=== PATIENT | female | born 1935 | race Caucasian/White ===

== ENCOUNTER 2017-04-19 16:27 | Inpatient (IN) | payer MEDICARE, OTHER ==
[2017-04-19 18:07] LABS: BILIRUBIN,URINE NEGATIVE (NEGATIVE); GLUCOSE, URINE (UA) NEGATIVE (NEGATIVE); KETONES,URINE (UA) NEGATIVE (NEGATIVE); LEUKOCYTE ESTERASE, URINE MODERATE (NEGATIVE); NITRITE,URINE NEGATIVE (NEGATIVE); OCCULT BLOOD,URINE NEGATIVE (NEGATIVE); PROTEIN,URINE TRACE mg/dL (NEGATIVE); UROBILINOGEN,URINE 2 E.U./dL (NORMAL)
[2017-04-19 18:08] LABS: CLARITY,URINE SL. CLOUDY (CLEAR)
[2017-04-19 18:13] LABS: BASOPHILS % (AUTO) 0.6 %; EOSINOPHILS # (AUTO) 0.7 10^3/uL (0.0-0.7); EOSINOPHILS % (AUTO) 9.6 %; HGB - HEMOGLOBIN 13.6 g/dL (12.0-16.0); LYMPHOCYTES # (AUTO) 1.3 10^3/uL (1.5-3.5); LYMPHOCYTES % (AUTO) 18.6 %; MEAN CORPUSCULAR HEMOGLOBIN 31.7 pg (27.0-31.0); MEAN CORPUSCULAR HGB CONC 32.7 g/dL (32.0-36.0); MEAN PLATELET VOLUME 7.6 fL (7.9-10.8); MONOCYTES # (AUTO) 0.9 10^3/uL (0.0-1.0); MONOCYTES % (AUTO) 12.7 %; NEUTROPHILS % (AUTO) 58.5 %; PLT - PLATELET COUNT 165 10^3/uL (130-450); RED BLOOD COUNT 4.28 10^6/uL (4.20-5.40); RED CELL DISTRIBUTION WIDTH 13.9 % (12.0-15.0); WHITE BLOOD COUNT 6.9 x10^3/uL (4.8-10.8)
[2017-04-19 18:19] LABS: BACTERIA,URINE Few /HPF (None Seen); RBC,URINE 0-5 /HPF (0-5); SQUAMOUS EPITHELIAL CELL,UR MANY Squamous (<= Few)
[2017-04-19 18:26] LABS: ALBUMIN 3.2 g/dL (3.2-5.5); ALBUMIN/GLOBULIN RATIO 0.8 (1.0-2.2); BILIRUBIN,TOTAL 1.2 mg/dL (0.2-1.0)
[2017-04-19] MEDS ORDERED: cefTRIAXone 1 GM VIAL IVP STA (18:49)
[2017-04-19] MEDS ORDERED: SODIUM CHLORIDE 0.9% 1,000 ML IV ONE (18:49)
--- NOTE | 2017-04-19 20:30 | XRAY Preliminary Report ---
Exam: XR CHEST 1 VIEW X-RAY IMPRESSION: Resolving infiltrate on the right, other chronic findings as noted. Continued follow-up i s recommended. [facility] SITE ID: [id number]
--- NOTE | 2017-04-19 20:31 | XRAY Report ---
EXAM: CHEST RADIOGRAPHY EXAM DATE: 04/19/2017 08:19 PM. CLINICAL HISTORY: Cough, recent pneumonia. COMPARISON: 04/07/2017. TECHNIQUE: 1 view. FINDINGS: Lungs/Pleura: Local infiltrate in right midlung zone on previous study has largely resolved. No moss e of density in left costophrenic angle, possibly related to fat pad and other soft tissues. No new i nfiltrate or consolidation. No effusion or pneumothorax. Mediastinum: Within exam limitations, the cardiomediastinal contour is normal. Other: Degenerative changes. IMPRESSION: Resolving infiltrate on the right, other chronic findings as noted. Continued follow-up i s recommended. [facility] Referring Provider Line: [phone] SITE ID: [id number]
--- NOTE | 2017-04-19 20:34 | ED Physician Documentation ---
History of Present Illness - Stated complaint Stated Complaint: CONFUSION - Chief complaint Chief Complaint: General - History obtained from History obtained from: Patient, Family - History of Present Illness Timing: Today Pain level max: 0 Pain level now: 0 Improved by: nothing Worsened by: nothing - Additonal information Additional information: Patient is an 82-year-old female who lives at home with her . She lives in [place]. She was admitted to [facility] in [place] recently for pneumonia, UTI, sepsis, influenza and an L1 compression fracture. She stopped her antibiotics 2-3 days ago and since that time his become increasingly weak and confused. She has been shaking at home. Unclear she has had fevers or not. Review of Systems Ten Systems: 10 systems reviewed and negative Constitutional: denies: Chills Ears: denies: Ear pain Nose: denies: Rhinorrhea / runny nose, Congestion Throat: denies: Sore throat Cardiac: denies: Chest pain / pressure Respiratory: denies: Dyspnea, Cough, Wheezing GI: reports: Abdominal Pain (intermittent). denies: Nausea, Vomiting, Diarrhea : denies: Dysuria Skin: denies: Rash Musculoskeletal: reports: Back pain (L1 compression fracture). denies: Neck pain Neurologic: denies: Headache PD PAST MEDICAL HISTORY - Past Medical History Past Medical History: Yes Cardiovascular: Hypertension, High cholesterol Psych: Anxiety Musculoskeletal: Chronic back pain - Past Surgical History Past Surgical History: Yes General: Cholecystectomy - Present Medications Home Medications: Ambulatory Orders Medication Instructions Recorded Confirmed ALPRAZolam [Alprazolam] 1 tab PO BID PRN 04/19/17 04/19/17 Aspirin 325 mg PO DAILY 04/19/17 04/19/17 Atenolol [Atenolol] 50 mg PO DAILY 04/19/17 04/19/17 Atorvastatin Calcium [Atorvastatin 1 tab PO DAILY 04/19/17 04/19/17 Calcium] Benzonatate 1 cap PO Q8HR PRN 04/19/17 04/19/17 Gabapentin 1 - 2 cap PO QID 04/19/17 04/19/17 Ibuprofen 200 mg PO QID PRN 04/19/17 04/19/17 Vit A/Vit C/Vit E/Zinc/Copper 1 tab PO BID 04/19/17 04/19/17 [Preservision Areds Softgel] hydroCHLOROthiazide 25 mg pe PO DAILY PM PRN 04/19/17 04/19/17 [Hydrochlorothiazide] traMADol [Ultram] 1 tab PO Q6HR PRN 04/19/17 04/19/17 - Allergies Allergies/Adverse Reactions: Allergies Allergy/AdvReac Type Severity Reaction Status Date / Time beclomethasone Allergy Mild Unknown Verified 04/19/17 21:20 adhesive tape AdvReac Intermediate Unknown Verified 04/19/17 21:23 codeine AdvReac Intermediate Nausea Verified 04/19/17 21:24 heparin AdvReac Intermediate Unknown Verified 04/19/17 21:18 hydrocodone AdvReac Intermediate Unknown Verified 04/19/17 21:21 oxycodone AdvReac Intermediate Unknown Verified 04/19/17 21:19 promethazine AdvReac Intermediate Unknown Verified 04/19/17 21:20 - Living Situation Living Situation: reports: With family Living Arrangement: reports: At home - Social History Does the pt smoke?: No Smoking Status: Never smoker Does the pt have substance abuse?: No - Family History Family history: reports: Non contributory PD ED PE NORMAL - Vitals Vital signs reviewed: Yes - General General: No acute distress, Well developed/nourished, Other (alert, oriented to person and place) - HEENT HEENT: PERRL, Ears normal, Moist mucous membranes, Pharynx benign - Neck Neck: Supple, no meningeal sign - Cardiac Cardiac: RRR, Strong equal pulses - Respiratory Respiratory: No respiratory distress, Clear bilaterally - Abdomen Abdomen: Soft, Non tender, Non distended - Back Back: No CVA TTP, Other (TTP at L1. no stepoff or deformity.) - Derm Derm: Warm and dry, No rash - Extremities Extremities: Other (mild edema B LE.) - Neuro Neuro: Other (alert) - Psych Psych: Normal mood, Normal affect Results - Vitals Vitals: Vital Signs - 24 hr 04/19/17 04/19/17 04/19/17 16:37 19:01 21:09 Temperature 35.7 C L 36.5 C 36 C L Heart Rate 61 64 63 Respiratory 16 14 14 Rate Blood Pressure 124/64 125/67 114/54 L O2 Saturation 96 94 96 04/19/17 04/19/17 23:02 23:34 Temperature 37.0 C Heart Rate 59 L 63 Respiratory 15 15 Rate Blood Pressure 120/41 L 107/44 L O2 Saturation 97 95 Oxygen O2 Source Room air - Labs Labs: Laboratory Tests 04/19/17 04/19/17 04/19/17 17:54 18:05 18:05 WBC 6.9 RBC 4.28 Hgb 13.6 Hct 41.5 MCV 97.0 MCH 31.7 H MCHC 32.7 RDW 13.9 Plt Count 165 MPV 7.6 L Neut # 4.0 Lymph # 1.3 L [place] # 0.9 Eos # 0.7 Baso # 0.0 Absolute Nucleated RBC 0.00 Nucleated RBC % 0.0 Sodium 136 Potassium 3.7 Chloride 96 L Carbon Dioxide 28 Anion Gap 12.0 BUN 17 Creatinine 1.0 Estimated GFR (MDRD) 53 L Glucose 158 H Lactic Acid Calcium 9.0 Total Bilirubin 1.2 H AST 224 H ALT 99 H Alkaline Phosphatase 322 H Total Protein 7.0 Albumin 3.2 Globulin 3.8 Albumin/Globulin Ratio 0.8 L Lipase 16 L Urine Color YELLOW Urine Clarity SL. CLOUDY Urine pH 7.0 Ur Specific [place] 1.020 Urine Protein TRACE Urine Glucose (UA) NEGATIVE Urine Ketones NEGATIVE Urine Occult Blood NEGATIVE Urine Nitrite NEGATIVE Urine Bilirubin NEGATIVE Urine Urobilinogen 2 H Ur Leukocyte Esterase MODERATE H Urine RBC 0-5 Urine WBC 11-25 H Ur Squamous Epith Cells MANY Squamous H Urine Bacteria Few Ur Microscopic Review INDICATED Urine Culture Comments NOT INDICATED Salicylates Acetaminophen Ethyl Alcohol 04/19/17 04/19/17 18:05 18:08 WBC RBC Hgb Hct MCV MCH MCHC RDW Plt Count MPV Neut # Lymph # [place] # Eos # Baso # Absolute Nucleated RBC Nucleated RBC % Sodium Potassium Chloride Carbon Dioxide Anion Gap BUN Creatinine Estimated GFR (MDRD) Glucose Lactic Acid 1.8 Calcium Total Bilirubin AST ALT Alkaline Phosphatase Total Protein Albumin Globulin Albumin/Globulin Ratio Lipase Urine Color Urine Clarity Urine pH Ur Specific [place] Urine Protein Urine Glucose (UA) Urine Ketones Urine Occult Blood Urine Nitrite Urine Bilirubin Urine Urobilinogen Ur Leukocyte Esterase Urine RBC Urine WBC Ur Squamous Epith Cells Urine Bacteria Ur Microscopic Review Urine Culture Comments Salicylates < 6.0 Acetaminophen < 10 L Ethyl Alcohol < 5.0 - Rads (name of study) cxr Radiology: Prelim report reviewed, EMP read contemporaneously, See rad report ( Resolving infiltrate on the right, other chronic findings as noted. Continued follow-up is recommended) RUQ US Radiology: Prelim report reviewed, EMP read contemporaneously, See rad report ( Cirrhotic appearing liver. Absent gallbladder with abnormal common bile duct diameter of 10 mm. Solid upper pole renal mass noted. ) Abd/pelvis CT Radiology: Prelim report reviewed, EMP read contemporaneously, See rad report ( Diverticulosis without diverticulitis or other acute bowel abnormality. Prominent common bile duct post-cholecystectomy. Posterior right upper renal cortical abnormality concerning for neoplasm. 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 Unchanged L1 fracture and L4-L5 anterolisthesis. ) PD MEDICAL DECISION MAKING - ED course Complexity details: reviewed old records ([facility] discharge summary), reviewed results, re-evaluated patient, considered differential, d/w patient, d/ w family, d/w residential property consultant ED course: Patient is an 82-year-old female who presents to the emergency department with altered mental status. Appears to have a recurrent UTI, given Rocephin for this. Also has elevated transaminases, unclear etiology, possibly from the Tamiflu that she was given for influenza? Bilirubin is not significantly elevated. No acute findings on CT abdomen pelvis other than a right renal mass that she will need outpatient follow-up for and the patient and her family were informed of this. No evidence of sepsis. Discussed the case with the hospitalist, Dr. Phelps who accepts. This document was made in part using voice recognition software. While efforts are made to proofread this document, sound alike and grammatical errors may occur. Departure - Departure Disposition: 66 [facility] DC/Xfer Clinical Impression: Transaminitis UTI (urinary tract infection) Qualifiers: Urinary tract infection type: acute cystitis Hematuria presence: without hematuria Qualified Code(s): N30.00 - Acute cystitis without hematuria Altered mental status Qualifiers: Altered mental status type: unspecified Qualified Code(s): R41.82 - Altered mental status, unspecified Condition: Stable
[2017-04-19] MEDS ORDERED: IOPAMIDOL-300 100 ML VIAL ONE (21:21)
--- NOTE | 2017-04-19 21:24 | Ultrasound Report ---
EXAM: ABDOMEN ULTRASOUND LIMITED, RUQ EXAM DATE: 04/19/2017 09:00 PM. CLINICAL HISTORY: Elevated LFTs. COMPARISON: None. TECHNIQUE: Real-time scanning was performed with static images obtained. FINDINGS: Liver: Normal in size. Hyperechoic heterogeneous echotexture with lobulated capsule. 16.6 cm. Main po rtal vein flow: Hepatopetal. Gallbladder: Surgically absent Biliary System: CBD measures 10 mm. Abnormally dilated. Other: The visualized pancreas is unremarkable. The right kidney measures 10.9, with a solid upper po le cortical mass 2.8 x 2.5 x 2.0 cm. IMPRESSION: 1. Cirrhotic appearing liver. 2. Absent gallbladder with abnormal common bile duct diameter of 10 mm. 3. Solid upper pole renal mass noted. [facility] Referring Provider Line: [phone] SITE ID: [id number]
[2017-04-19] MEDS ORDERED: IOPAMIDOL-300 100 ML VIAL IVP ONE (21:34)
[2017-04-19 22:10] LABS: SALICYLATE < 6.0 mg/dL
[2017-04-19 22:22] LABS: ACETAMINOPHEN < 10 ug/mL (10-30)
--- NOTE | 2017-04-19 22:22 | CT Report ---
EXAM: CT ABDOMEN AND PELVIS EXAM DATE: 04/19/2017 09:42 PM. CLINICAL HISTORY: Abdominal pain. Elevated LFTs. Right renal mass. COMPARISONS: None. TECHNIQUE: Routine helical CT imaging was performed through the abdomen and pelvis. IV contrast: 100M L ISOVUE 300. Enteric contrast: No. Reconstructions: Coronal and sagittal. In accordance with CT protocol optimization, one or more of the following dose reduction techniques w ere utilized for this exam: automated exposure control, adjustment of mA and/or KV based on patient s ize, or use of iterative reconstructive technique. FINDINGS: Lung Bases: Mitral valve calcification noted, otherwise unremarkable.. Liver: Normal. No masses. Gallbladder/Bile Ducts: Prominent common bile duct postcholecystectomy. Spleen: Normal. Pancreas: Normal. Adrenal Glands: Normal. Kidneys: Exophytic area of abnormal enhancement, posterior upper right kidney, 3.5 cm. Otherwise unre markable. Peritoneal Cavity/Bowel: Diverticulosis. No free fluid, free air or adenopathy. No masses or acute in flammatory process. The appendix is well visualized and normal. Pelvic Organs: Hysterectomy. Unremarkable bladder. Vasculature: No aortic aneurysm. Advanced atherosclerotic calcification. Left iliac artery stent. Rig ht common iliac artery occlusion, with patent femorofemoral graft. Bones: Two column L1 vertebral body fracture, and mild anterolisthesis at L4-L5, unchanged. Other: None. IMPRESSION: 1. Diverticulosis without diverticulitis or other acute bowel abnormality. 2. Prominent common bile duct post-cholecystectomy. 3. Posterior right upper renal cortical abnormality concerning for neoplasm. 4. 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 5. Unchanged L1 fracture and L4-L5 anterolisthesis. [facility] Referring Provider Line: [phone] SITE ID: [id number]
[2017-04-20] MEDS ORDERED: ONDANSETRON 4 MG/2 ML VIAL IVP PRN (00:12)
[2017-04-20] MEDS ORDERED: MORPHINE 2 MG/ML CARPUJECT IVP PRN (00:12)
[2017-04-20 00:20] LABS: BILIRUBIN,URINE NEGATIVE (NEGATIVE); GLUCOSE, URINE (UA) NEGATIVE (NEGATIVE); KETONES,URINE (UA) NEGATIVE (NEGATIVE); LEUKOCYTE ESTERASE, URINE NEGATIVE (NEGATIVE); NITRITE,URINE NEGATIVE (NEGATIVE); OCCULT BLOOD,URINE NEGATIVE (NEGATIVE); PROTEIN,URINE NEGATIVE (NEGATIVE); UROBILINOGEN,URINE 0.2 (NORMAL) E.U./dL (NORMAL)
[2017-04-20 00:30] LABS: CLARITY,URINE CLEAR (CLEAR)
[2017-04-20 00:49] LABS: INR 1.4 (0.8-1.2); PT - PROTHROMBIN TIME 15.4 secs (9.9-12.6)
[2017-04-20] MEDS ORDERED: NS W/20 MEQ KCL 1,000 ML IV SCH (01:00)
[2017-04-20 01:06] LABS: CREATINE KINASE MB 1.9 ng/mL (0.6-6.3)
[2017-04-20 01:08] LABS: TROPONIN I < 0.04 ng/mL (<0.49)
[2017-04-20] MEDS: ERTAPENEM 1 GM in SODIUM CHLORIDE 0.9% MINIBAG 100 ML IV SCH ×2 (03:02→21:23)
--- NOTE | 2017-04-20 04:55 | HISTORY & PHYSICAL EXAMINATION ---
DATE OF SERVICE: 04/19/2017 Physician: Crystal Phelps MD DATE OF ADMISSION: 04/19/2017 CHIEF COMPLAINT: Altered mental status. SOURCE OF HISTORY: History was obtained interviewing the patient's family, including and daughter, plus reviewing medical records from [facility], and getting a sign out from the ER physician. CODE STATUS: FULL CODE. PRIMARY CARE PHYSICIAN: Maxim Guaman HISTORY OF PRESENT ILLNESS: The patient is an 82-year-old, white female who was brought in to [facility] ER by her daughter and . The patient on admission was confused and could not meaningfully interact; therefore, the history was provided by the family. The daughter reported that this patient is usually active with no dementia or memory problems. She has never been confused in the past, except during the past few weeks, when she had been ill. The patient is computer literate, usually takes care of her grandkids, likes traveling and has a very active lifestyle, that is up to early March, at which time she developed generalized weakness and altered mental status, and was taken to [facility], where she was admitted between April 06 and April 09. Reviewing discharge summary from [place], she was found with influenza A. In addition, she was found with right middle lobe pneumonia urinary infection, and she also had an L1 compression fracture, which she suffered following a mechanical fall at her home. Besides all these acute problems, she was found with an incidental small right basal ganglia lacunar infarct on CT scan of the brain, and reportedly there was no acute symptom to this, and it was an incidental finding. During the 3-day hospital stay, the patient received IV antibiotics for pneumonia and urinary infection, which included Rocephin and vancomycin, and she also received Tamiflu for influenza. The daughter reports that after a couple of days on antibiotics, the patient's mental status cleared up, and she was almost back to her usual state of health. She was discharged on the third day, and was sent home to finish an antibiotic course of Omnicef and doxycycline. She also received a brace for the L1 compression fracture. The patient and her live in the [place] area, and the patient went home with her after she was discharged. She was doing reasonably well for about a couple of days; however, subsequently again she developed lethargy and weakness. The daughter who lives on [facility] visited the patient a few days ago on April 16, and found that the patient was again declining with her function; therefore, decided to bring the patient to her home and take care of her. During the past 3 days, the patient had been increasingly lethargic and profoundly confused. She had some back pain and, on the , she was given baclofen for muscle spasms; however, even before that , she was confused. The daughter described that there were some episodes when the patient had clear mental status, followed by altered mental status. The mental status had been fluctuating. Other than the baclofen, the patient was really not taking any psychoactive medications. She was given tramadol a long time ago, but recently she has not been taking much. She took mostly ibuprofen for back pain and a compression fracture. Reviewing her medication list Xanax is listed, but the patient's daughter reports that the patient has not been on Xanax for quite a long time. Upon presentation to [facility], the patient was hemodynamically stable and afebrile. The ER workup showed abnormal liver function tests including bilirubin of 1.2, AST 224, alkaline phosphatase 322, ALT 99. Lipase was normal. Urinalysis showed moderate leukocyte esterase, squamous epithelial cells, some bacteria and some white blood cells. This was not a catheterized urine and it could be a contaminant. Regarding additional laboratories, white blood cell count was normal. Lactic acid was unremarkable. Other than the liver function abnormality, no significant laboratory abnormality was seen. Initially at the ER, the patient underwent an abdominal ultrasound, which showed a common bile duct around 1 cm. In addition, there was a cirrhotic appearing liver and solid upper pole renal mass. The gallbladder was absent, consistent with history of cholecystectomy. The abdominal ultrasound was followed up with a CT scan of abdomen and pelvis, which confirmed a right upper pole renal mass concerning for neoplasm. The common bile duct was described prominent; however, with a post cholecystectomy situation, there was diverticulosis without diverticulitis. Unchanged L1 fracture and L4-5 spinal stenosis were also described and there were some vascular stents and grafts which were patent and unremarkable. Chest imaging included chest x-ray, which showed resolving right mid lobe infiltrate and some chronic findings. No acute abnormality. Followup for this chest x-ray was recommended, given the chronic findings and the resolving right-sided infiltrate. PAST MEDICAL HISTORY 1. Hypertension. 2. Dyslipidemia. 3. Peripheral vascular disease, status post left iliac stent and femoral- femoral graft. 4. Spinal stenosis at the L4-L5 level, recent compression fracture of the L1. 5. History of thrombocytopenia. This was noted during hospital stay at [facility], with platelet counts as low as in the 60s. It is documented that THE PATIENT IS ALLERGIC TO HEPARIN, but no clear documentation of possible heparin-induced thrombocytopenia. 6. Recent hospital stay at [facility]. Please see the pertinent issues listed above in history of present illness. 7. Cerebrovascular accident with right basal ganglia lacunar infarct, which was found as an incidental finding on recent CT scan of the brain. 8. Status post cholecystectomy. OUTPATIENT MEDICATIONS Included: 1. Tramadol. 2. Ibuprofen. 3. Hydrochlorothiazide. 4. Gabapentin. 5. Atorvastatin. 6. Atenolol. 7. Benzonatate. 8. Aspirin. 9. P.r.n. Xanax, which the patient has not been taking for a while. 10. Baclofen. ALLERGIES 1. BECLOMETHASONE. 2. PROMETHAZINE. 3. OXYCODONE. 4. HYDROCODONE. 5. HEPARIN. 6. CODEINE. 7. ADHESIVE TAPE. FAMILY HISTORY: Strongly positive for cerebrovascular accident in 2 brothers who both of complications of strokes. SOCIAL HISTORY: The patient had been physically active and functional with all activities of daily living. She recently suffered L1 fracture and needed a walker to ambulate. Prior to that, she needed no assistive device. She lives with her . She is a nonsmoker. No history of significant alcohol use. REVIEW OF SYMPTOMS: The patient could not provide due to altered mental status. The pertinent positives were listed at history of present illness, provided by family. PHYSICAL EXAMINATION VITAL SIGNS: Temperature 37 Celsius, heart rate in the 60s, respiratory rate 15 , oxygen saturation 97% on room air, blood pressure 120/40. GENERAL: The patient is a well-developed, elderly female who was somnolent, fell asleep easily, appeared pleasantly confused, was not in distress. PSYCHIATRIC: Pleasantly confused. No agitation. Cooperative. NEUROLOGIC: The patient was lethargic, but arousable. Had symmetric face. Her speech appeared slurred and she repeated some words when I spoke to her. She could not carry a meaningful conversation. Her tongue protruded to the midline. She had some myoclonic jerks during my exam. Had generalized muscle weakness and slow movements with some ataxia; however, there was no focal motor weakness or obvious sensory deficits. ABDOMEN: Soft, benign, nontender. Bowel tones hypoactive. LYMPHATIC: No lymphedema. MUSCULOSKELETAL: Appeared atraumatic. SKIN: With mild pallor. No jaundice. CARDIOVASCULAR: S1, S2. Regular. I could not hear a pathologic murmur. RESPIRATORY: No increased work of breathing. Clear to auscultation bilaterally. ASSESSMENT AND PLAN: The patient is an 82-year-old female who had been functional up to a few weeks ago, at which time she became confused and weak. She was admitted to [facility] and was treated for multiple abnormalities including right middle lobe pneumonia, influenza, urinary tract infection, L1 compression fracture. In addition, she was found with a small stroke on CT scan of the brain, but it was felt to be an incidental finding, old /nonacute and not particularly responsible for her symptoms. In any case, her mentation cleared after 3 days' hospital stay and she was discharged in stable condition, but 2 days following discharge she again became weak and confused. Today, at the ER, in fact, she was profoundly confused/encephalopathic. ACTIVE ISSUE/DIAGNOSES 1. Abnormal liver function tests, could be multifactorial. CT scan showed a cirrhotic-appearing liver and the patient has history of thrombocytopenia , I question whether she has underlying undiagnosed cirrhosis. Family did not report significant alcohol intake, but I will ask them again. 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 In particular, the patient was on cephalosporins, doxycycline, and Tamiflu, which could all cause liver damage. Notably, on admission, a toxicology screen with Tylenol and salicylate was unremarkable. Regarding possible biliary pathology, the patient is status post cholecystectomy. Lipase was unremarkable and, although the common bile duct was dilated on CT scan, it was more of a post cholecystectomy situation rather than an obstructive problem. Regarding possibility of acute hepatitis, it is low on the differential as the patient is not febrile and did not have abdominal pain, but we will add hepatitis panel. Will add INR and ammonia level. 2. Encephalopathy, likely multifactorial secondary to metabolic encephalopathy in the setting of abnormal liver function tests, possibility of a recurrent or partially treated urine infection and the patient will also need to be ruled out for other pathologies such as cerebrovascular accident, atypical cardiac presentation, thyroid abnormality, hyperammoniemia. Regarding medication-induced encephalopathy, reviewing the patient's medication list with her daughter, the patient did not take any psychoactive medications. In particular, she has not been taking tramadol much and Xanax she has not taken for quite a while. Notably, the medications are administered by the daughter. MRI will be done to rule out CVA or brain metastases. 3. New finding/diagnosis of right renal mass, which is concerning for neoplasm. This will need a biopsy and outpatient workup. 4. Resolving mid lung infiltrate. This is most likely a resolving pneumonia , will need to be followed. In addition, there were some soft tissue shadows or fat pad like cortical abnormalities on the x-ray. Depending on the clinical course, CT scan to further characterize the lung lesions could be considered. 5. Recent L1 compression fracture with chronic degenerative abnormality of L4 -L5 spinal stenosis/back pain. 6. History of thrombocytopenia today with normal platelet count. No information available regarding further detail. 7. Peripheral vascular disease, status post iliac stent and femoral-femoral graft, appears not an active issue today. PLAN AND ORDERS 1. The patient is getting admitted as inpatient. We will send a catheterized urine. The first urinalysis was not a clean catch sample and I suspect it was a contaminated urine. 2. MRI in the morning to rule out cerebrovascular accident or other brain pathology. Notably, the patient could have malignancy and could have metastatic brain lesions. Carotid ultrasound. 3. Regarding the liver abnormalities, we will avoid hepatotoxic medications. Therefore, reviewing outpatient medications, I will only continue aspirin and atenolol. As far as antibiotics to cover for possible urinary infection, I choose Invanz, which is not reported to be associated with liver toxicity. 4. Regarding possibility of urinary tract infection, which could be untreated or recurrent, as the patient took multiple antibiotics recently there is a risk for multidrug resistant infection. Therefore, initially the patient will be covered with Invanz until urine culture and blood culture return negative. 5. Regarding possible other issues which could lead to confusion, we will rule out atypical cardiac presentation, checking an EKG and troponin. 6. Given that liver function tests are abnormal, muscle source could be considered as well. Rarely, on medications and with other issues, the patient could develop rhabdomyolysis as well. Therefore, we will check a creatine kinase. Overnight, we will provide gentle IV hydration. We will recheck laboratories in the morning, in particular liver function tests. Provide supportive care. 7. Deep venous thrombosis prophylaxis with Venodyne boots. Notably, the patient has A DOCUMENTED ALLERGY TO HEPARIN. 8. I will ask family members about possibility of alcohol use, as altered mental status could be precipitated by withdrawal as well. However, initially talking to the family, no history of alcohol use was reported. 9. I certify that the reasonable expectation, based on admission workup and condition, is that the patient will be discharged home or transferred to another hospital within 96 hrs. Time spent on the care of this patient was 60 minutes. TD: 04/20/2017 05:54 ALONSO
[2017-04-20] MEDS: SODIUM CHLORIDE FLUSH 0.9% 10 ML SYRINGE IVP SCH ×3 (05:36→22:01)
[2017-04-20 07:26] LABS: ALBUMIN 2.7 g/dL (3.2-5.5); ALBUMIN/GLOBULIN RATIO 0.8 (1.0-2.2); BILIRUBIN,TOTAL 0.9 mg/dL (0.2-1.0); CALCIUM 8.5 mg/dL (8.5-10.3); CREATININE 0.8 mg/dL (0.4-1.0); TOTAL PROTEIN 6.1 g/dL (6.7-8.2)
[2017-04-20 08:40] LABS: THYROID STIMULATING HORMONE 1.32 uIU/mL (0.34-5.60)
[2017-04-20 08:42] LABS: FREE T4 (FREE THYROXINE) 1.09 ng/dL (0.58-1.64)
[2017-04-20] MEDS ORDERED: ATENOLOL 25 MG TABLET PO SCH (09:00)
--- NOTE | 2017-04-20 09:33 | Ultrasound Preliminary Report ---
Exam: US CAROTID DOPPLER COMPLETE IMPRESSION: Atherosclerosis of the common carotid artery and the internal and external carotid artery bilaterally. Flow velocities in the left internal carotid artery consistent with a stenosis in the range of 50-69% . Moderate stenosis of the left external carotid artery. No hemodynamically significant stenosis of the right internal carotid artery. Mild stenosis of the right external carotid artery. Validated velocity measurements with angiographic measurements and velocity criteria are extrapolated from diameter data as defined by the Society of Radiologists in Ultrasound Consensus Conference Radi ology 2003; 229;340-346. [facility] SITE ID: [id number]
--- NOTE | 2017-04-20 09:42 | Ultrasound Report ---
EXAM: CAROTID DOPPLER ULTRASOUND EXAM DATE: 04/20/2017 09:03 AM. CLINICAL HISTORY: Altered mental status. Prior left carotid endarterectomy. COMPARISON: None. TECHNIQUE: Real-time sonographic vascular imaging was performed by the boat garnisher through the [employer] arterial system with a linear transducer utilizing color-flow, Doppler flow and spectral analysis. Multiple architectural representative static images were saved for review. FINDINGS: Right: Atherosclerotic plaque in the common carotid artery and in the proximal internal and external carotid arteries. No abnormal elevation of internal carotid artery velocity. Mild elevation of control officer manager al carotid artery velocities. Antegrade flow of the vertebral artery. Left: Plaque in the common carotid artery and in the proximal internal and external carotid artery. M oderate elevation of external carotid artery flow. Mild increase in internal carotid artery velocity. Antegrade flow in the vertebral artery. Right: RCCA Prox: PSV 81 cm/sec. RCCA Dist: PSV 75 cm/sec, EDV 14 cm/sec. RECA: PSV 177 cm/sec. R Bulb: PSV 77 cm/sec, EDV 8 cm/sec, ICA/CCA ratio 1.0. MIGUEL Prox: PSV 79 cm/sec, EDV 10 cm/sec, ICA/CCA ratio 1.0. MIGUEL Mid: PSV 81 cm/sec, EDV 16 cm/sec, ICA/CCA ratio 1.0. MIGUEL Dist: PSV 84 cm/sec, EDV 16 cm/sec, ICA/CCA ratio 1.1. RVA: PSV 63 cm/sec. RVA flow direction: Antegrade. Left: LCCA Prox: PSV 71 cm/sec. LCCA Dist: PSV 70 cm/sec, EDV 15 cm/sec. LECA: PSV 217 cm/sec. L Bulb: PSV 110 cm/sec, EDV 20 cm/sec, ICA/CCA ratio 1.5. LICA Prox: PSV 118 cm/sec, EDV 19 cm/sec, ICA/CCA ratio 1.6. LICA Mid: PSV 134 cm/sec, EDV 6 cm/sec, ICA/CCA ratio 1.9. LICA Dist: PSV 106 cm/sec, EDV 17 cm/sec, ICA/CCA ratio 1.5. LVA: PSV 101 cm/sec. LVA flow direction: Antegrade. IMPRESSION: Atherosclerosis of the common carotid artery and the internal and external carotid artery bilaterally. Flow velocities in the left internal carotid artery consistent with a stenosis in the range of 50-69% . Moderate stenosis of the left external carotid artery. No hemodynamically significant stenosis of the right internal carotid artery. Mild stenosis of the right external carotid artery. Validated velocity measurements with angiographic measurements and velocity criteria are extrapolated from diameter data as defined by the Society of Radiologists in Ultrasound Consensus Conference Radi ology 2003; 229;340-346. [facility] Referring Provider Line: [phone] SITE ID: [id number]
[2017-04-20] MEDS ORDERED: IBUPROFEN 100 MG/5 ML UDC PO PRN (10:52)
[2017-04-20] MEDS ORDERED: traMADol 50 MG TABLET PO PRN (10:52)
[2017-04-20] MEDS: traMADol 50 MG TABLET PO PRN (11:16)
[2017-04-20] MEDS: ASPIRIN 325 MG TABLET PO SCH (11:16)
[2017-04-20] MEDS: SODIUM CHLORIDE FLUSH 0.9% 10 ML SYRINGE IVP PRN (11:27)
[2017-04-20] MEDS: POLYETHYLENE GLYCOL 3350 17 GM PACKET PO SCH (12:51)
--- NOTE | 2017-04-20 13:55 | MRI Report ---
EXAM: MRI BRAIN WITHOUT CONTRAST EXAM DATE: 04/20/2017 11:15 AM. CLINICAL HISTORY: 82-year-old with altered mental status COMPARISON: CT head 04/06/2017; CT head 07/07/2012. TECHNIQUE: Multiplanar, multisequence T1-weighted and fluid-sensitive MR sequences of the brain were performed. Sequences optimized for routine evaluation. Other: None. IV Contrast: None. FINDINGS: Brain Volume: Normal for age. Parenchyma/Dura: No acute parenchymal hemorrhage, mass, or midline shift. There is mild bilateral are as of T2/FLAIR signal hyperintensity seen. Old chronic lacunar infarct of the right putamen. There is arc-linear areas of DWI signal hyperintensity within the middle cranial fossa and right orbit that a re felt to be artifactual and not represent areas of restricted diffusion. No areas of restricted dif fusion seen to suggest acute infarct. No old hemorrhagic blood products. Ventricles/Cisterns: No hydrocephalus. No abnormal extra-axial fluid collection or hemorrhage. Cister ns are patent. Orbits: Changes of bilateral lens replacement. Sella Turcica: The pituitary gland, cavernous sinuses, suprasellar cistern and optic chiasm are unrem arkable. IAC: Symmetric and unremarkable. Vasculature: Normal signal flow void is seen in the major arterial structures at the skull base. Sinuses: Minimal mucosal thickening of the maxillary sinus and ethmoid air cells. Moderate mucosal th ickening left sphenoid sinus. Mastoid air cells and middle ear cavities are clear. Bones: No focal pathologic appearing marrow signal changes. Other: None. IMPRESSION: 1. No definite acute infarct, intracranial hemorrhage, mass, hydrocephalus, or midline shift. 2. Mild white matter changes that while nonspecific, most likely represent sequela of chronic small v essel ischemic disease. [facility] Referring Provider Line: [phone] SITE ID: [id number]
--- NOTE | 2017-04-20 13:55 | MRI Preliminary Report ---
Exam: MRI BRAIN W/O IMPRESSION: 1. No definite acute infarct, intracranial hemorrhage, mass, hydrocephalus, or midline shift. 2. Mild white matter changes that while nonspecific, most likely represent sequela of chronic small v essel ischemic disease. [facility] SITE ID: [id number]
[2017-04-20] MEDS: IBUPROFEN 600 MG TABLET PO SCH ×2 (17:10→21:23)
--- NOTE | 2017-04-20 17:51 | PROVIDER PROGRESS NOTE ---
Assessment/Plan - Problem List (1) Altered mental status Qualifiers: Altered mental status type: unspecified Qualified Code(s): R41.82 - Altered mental status, unspecified Assessment/Plan: Pt has cleared significantly since empiric iv antibiotics started. Ammonia level wnl TSH wnl Brain MRI showed no concerning lesions. Yesterday's head CT suspected small lacune/Today MRI syas atherosclerosis of small vessels The daughter and recalled that Pt had a similar marked confusion when she had an infection of the groin after her peripheral vascular stents were placed approx 4-5 years ago. Also, the doctor at [facility] mentioned that Pt got confused with that recent CAP/UTI which they treated. Will minimize sedatives and opioids (2) Transaminitis Assessment/Plan: Small improvement in LFTs. INR was slightly bnormal at 1.4, suggesting synthesis problem. Ammonia level was normal The abnormality was likely due to meds Will continue to avoid hepatotoxic meds (no statin for now, etc) (3) UTI (urinary tract infection) Qualifiers: Urinary tract infection type: acute cystitis Hematuria presence: without hematuria Qualified Code(s): N30.00 - Acute cystitis without hematuria Assessment/Plan: Pt on Ertepanem iv. The results of urine culture from Pt Ray were received and showed: she grew E coli AND Enterococcus faecalis, sensitivities were reviewed. Continue Ertepenam iv for 1-2 days more then change to Nitrofurantoin po. (4) Right renal mass Assessment/Plan: This leo need outpt W/U. I discussed this with and family. (5) Low back pain Assessment/Plan: The daughter reports that LBP is worse since she was transferred from our ER [facility] to this hospital bed, Ultram helps. L1 compression fracture plus spinal stenosis were newly diagnosed at [place] hospitalization. Consider repeat Lumbar spine imaging. Continue current meds and eventual PT. (6) Thrombocytopenia Assessment/Plan: Resolved (7) PVD (peripheral vascular disease) Assessment/Plan: continue ASA, good BP and cholesterol control. - Current Meds Current Meds: Current Medications Generic Name Dose Route Start Last Admin Trade Name Freq PRN Reason Stop Dose Admin Aspirin 325 mg 04/20/17 09:00 04/20/17 11:16 Samantha PO 325 mg DAILY FLORI Administration Ertapenem 1 gm/ Sodium 100 mls @ 200 mls/hr 04/20/17 00:20 04/20/17 03:39 Chloride IV Infused HS FLORI Infusion Ibuprofen 600 mg 04/20/17 16:00 04/20/17 17:10 Motrin PO 600 mg Q6H FLORI Administration Morphine Sulfate 2 mg 04/20/17 00:12 04/20/17 02:53 Morphine (Carpuject) IVP 2 mg Q2HR PRN Administration Pain 8 to 10 Polyethylene Glycol 17 gm 04/20/17 09:00 04/20/17 12:51 Miralax PO 17 gm DAILY FLORI Administration Sodium Chloride 10 ml 04/20/17 00:12 04/20/17 11:27 Normal Saline Flush 0.9% IVP 10 ml PRN PRN Administration NEEDED PER PROVIDER ORDERS Sodium Chloride 10 ml 04/20/17 06:00 04/20/17 12:43 Normal Saline Flush 0.9% IVP 10 ml Q8HR FLORI Administration Tramadol HCl 50 mg 04/20/17 11:03 04/20/17 11:16 Ultram PO 50 mg Q12H PRN Administration PAIN - Lab Result Fish Bone Diagrams: 04/19/17 18:05 04/20/17 06:52 - Additional Planning My Orders: My Active Orders 04/20/17 11:03 traMADol [Ultram] 50 mg PO Q12H PRN 04/20/17 16:00 Ibuprofen [Motrin] 600 mg PO Q6H 04/21/17 05:00 LIVER PANEL [CHEM] DAILYLAB 04/21/17 08:00 Multivitamin W/Minerals [Theragran M] 1 tab PO DAILYWM Subjective - Subjective Patient Reports: Feeling Better, Resting Comfortably, Other (c/o LBP) Nursing Reports: Other (More awake and alert and conversing with family) Objective Vital Signs: Vital Signs - 24 hr 04/20/17 04/20/17 04/20/17 00:40 01:20 06:00 Temperature 36.8 C 37.1 C 36.4 C L Heart Rate 65 Heart Rate [ 63 65 Brachial] Respiratory 15 16 16 Rate Blood Pressure 138/58 H Blood Pressure 144/60 H 136/54 H [Left Brachial artery] Blood Pressure [Right Brachial artery] O2 Saturation 95 96 94 04/20/17 04/20/17 04/20/17 09:00 14:00 15:44 Temperature 37.3 C 37.0 C 37.0 C Heart Rate Heart Rate [ 64 66 63 Brachial] Respiratory 20 18 20 Rate Blood Pressure Blood Pressure 125/37 L 136/44 H 145/46 H [Left Brachial artery] Blood Pressure 131/48 H [Right Brachial artery] O2 Saturation 94 95 98 Oxygen O2 Source Room air I&O (Last 24 Hrs): Intake and Output Totals x24h 04/18/17 04/19/17 04/20/17 23:59 23:59 23:59 Intake Total 2286.501 Balance 2286.501 General: Alert HEENT: Mucous membr. moist/pink Neck: Supple, No JVD Neuro: Oriented Times 3 Cardiovascular: Regular rate, No murmurs Respiratory: No respiratory distress Abdomen: Soft Extremities: No edema - Results Results: Laboratory Results WBC 6.9 x10^3/uL (4.8-10.8) 04/19/17 18:05 RBC 4.28 10^6/uL (4.20-5.40) 04/19/17 18:05 Hgb 13.6 g/dL (12.0-16.0) 04/19/17 18:05 Hct 41.5 % (37.0-47.0) 04/19/17 18:05 MCV 97.0 fL (81.0-99.0) 04/19/17 18:05 MCH 31.7 pg (27.0-31.0) H 04/19/17 18:05 MCHC 32.7 g/dL (32.0-36.0) 04/19/17 18:05 RDW 13.9 % (12.0-15.0) 04/19/17 18:05 Plt Count 165 10^3/uL (130-450) 04/19/17 18:05 MPV 7.6 fL (7.9-10.8) L 04/19/17 18:05 Neut # 4.0 10^3/uL (1.5-6.6) 04/19/17 18:05 Lymph # 1.3 10^3/uL (1.5-3.5) L 04/19/17 18:05 [place] # 0.9 10^3/uL (0.0-1.0) 04/19/17 18:05 Eos # 0.7 10^3/uL (0.0-0.7) 04/19/17 18:05 Baso # 0.0 10^3/uL (0.0-0.1) 04/19/17 18:05 Absolute Nucleated RBC 0.00 x10^3/uL 04/19/17 18:05 Nucleated RBC % 0.0 /100WBC 04/19/17 18:05 PT 15.4 secs (9.9-12.6) H 04/19/17 00:35 INR 1.4 (0.8-1.2) H 04/19/17 00:35 Sodium 139 mmol/L (135-145) 04/20/17 06:52 Potassium 4.0 mmol/L (3.5-5.0) 04/20/17 06:52 Chloride 103 mmol/L (101-111) 04/20/17 06:52 Carbon Dioxide 26 mmol/L (21-32) 04/20/17 06:52 Anion Gap 10.0 (6-13) 04/20/17 06:52 BUN 13 mg/dL (6-20) 04/20/17 06:52 Creatinine 0.8 mg/dL (0.4-1.0) 04/20/17 06:52 Estimated GFR (MDRD) 69 (>89) L 04/20/17 06:52 Glucose 101 mg/dL (70-100) H 04/20/17 06:52 Lactic Acid 1.8 mmol/L (0.5-2.2) 04/19/17 18:05 Calcium 8.5 mg/dL (8.5-10.3) 04/20/17 06:52 Total Bilirubin 0.9 mg/dL (0.2-1.0) 04/20/17 06:52 AST 190 IU/L (10-42) H 04/20/17 06:52 ALT 87 IU/L (10-60) H 04/20/17 06:52 Alkaline Phosphatase 283 IU/L (42-121) H 04/20/17 06:52 Ammonia 17.1 umol/L (7-35) 04/20/17 06:52 Total Creatine Kinase 60 IU/L (22-269) 04/20/17 00:35 CK-MB (CK-2) 1.9 ng/mL (0.6-6.3) 04/19/17 00:35 Troponin I < 0.04 ng/mL (<0.49) 04/19/17 00:35 Total Protein 6.1 g/dL (6.7-8.2) L 04/20/17 06:52 Albumin 2.7 g/dL (3.2-5.5) L 04/20/17 06:52 Globulin 3.4 g/dL (2.1-4.2) 04/20/17 06:52 Albumin/Globulin Ratio 0.8 (1.0-2.2) L 04/20/17 06:52 Lipase 16 U/L (22-51) L 04/19/17 18:05 TSH 1.32 uIU/mL (0.34-5.60) 04/20/17 06:52 Free T4 1.09 ng/dL (0.58-1.64) 04/20/17 06:52 Urine Color LT. YELLOW 04/20/17 00:15 Urine Clarity CLEAR (CLEAR) 04/20/17 00:15 Urine pH 7.0 PH (5.0-7.5) 04/20/17 00:15 Ur Specific [place] <=1.005 (1.002-1.030) 04/20/17 00:15 Urine Protein NEGATIVE mg/dL (NEGATIVE) 04/20/17 00:15 Urine Glucose (UA) NEGATIVE mg/dL (NEGATIVE) 04/20/17 00:15 Urine Ketones NEGATIVE mg/dL (NEGATIVE) 04/20/17 00:15 Urine Occult Blood NEGATIVE (NEGATIVE) 04/20/17 00:15 Urine Nitrite NEGATIVE (NEGATIVE) 04/20/17 00:15 Urine Bilirubin NEGATIVE (NEGATIVE) 04/20/17 00:15 Urine Urobilinogen 0.2 (NORMAL) E.U./dL (NORMAL) 04/20/17 00:15 Ur Leukocyte Esterase NEGATIVE (NEGATIVE) 04/20/17 00:15 Urine RBC 0-5 /HPF (0-5) 04/19/17 17:54 Urine WBC 11-25 /HPF (0-5) H 04/19/17 17:54 Ur Squamous Epith Cells MANY Squamous (<= Few) H 04/19/17 17:54 Urine Bacteria Few /HPF (None Seen) 04/19/17 17:54 Ur Microscopic Review NOT INDICATED 04/20/17 00:15 Urine Culture Comments NOT INDICATED 04/20/17 00:15 Salicylates < 6.0 mg/dL 04/19/17 18:08 Acetaminophen < 10 ug/mL (10-30) L 04/19/17 18:08 Ethyl Alcohol < 5.0 mg/dL 04/19/17 18:08
[2017-04-20] MEDS ORDERED: ERTAPENEM 1 GM in SODIUM CHLORIDE 0.9% MINIBAG 100 ML IV SCH (21:00)
[2017-04-21] MEDS ORDERED: ALPRAZolam 0.25 MG TABLET PO PRN (02:24)
[2017-04-21] MEDS: IBUPROFEN 600 MG TABLET PO SCH ×4 (04:47→18:09)
[2017-04-21] MEDS: traMADol 50 MG TABLET PO PRN ×2 (04:49→17:29)
[2017-04-21 05:32] LABS: ALBUMIN 2.5 g/dL (3.2-5.5); BILIRUBIN,DIRECT 0.5 mg/dL (0.1-0.5); BILIRUBIN,TOTAL 1.1 mg/dL (0.2-1.0); TOTAL PROTEIN 5.6 g/dL (6.7-8.2)
[2017-04-21 08:37] LABS: BASOPHILS # (AUTO) 0.2 10^3/uL (0.0-0.1); BASOPHILS % (AUTO) 3.1 %; EOSINOPHILS # (AUTO) 0.6 10^3/uL (0.0-0.7); EOSINOPHILS % (AUTO) 10.1 %; HGB - HEMOGLOBIN 12.8 g/dL (12.0-16.0); LYMPHOCYTES # (AUTO) 1.5 10^3/uL (1.5-3.5); LYMPHOCYTES % (AUTO) 26.4 %; MEAN CORPUSCULAR HEMOGLOBIN 32.7 pg (27.0-31.0); MEAN CORPUSCULAR HGB CONC 35.3 g/dL (32.0-36.0); MEAN CORPUSCULAR VOLUME 92.7 fL (81.0-99.0); MEAN PLATELET VOLUME 7.1 fL (7.9-10.8); MONOCYTES # (AUTO) 0.7 10^3/uL (0.0-1.0); MONOCYTES % (AUTO) 12.9 %; NEUTROPHILS # (AUTO) 2.7 10^3/uL (1.5-6.6); NEUTROPHILS % (AUTO) 47.5 %; PLT - PLATELET COUNT 111 10^3/uL (130-450); RED BLOOD COUNT 3.91 10^6/uL (4.20-5.40); RED CELL DISTRIBUTION WIDTH 13.4 % (12.0-15.0); WHITE BLOOD COUNT 5.8 x10^3/uL (4.8-10.8)
[2017-04-21 08:54] LABS: ALBUMIN 2.8 g/dL (3.2-5.5); ALBUMIN/GLOBULIN RATIO 0.8 (1.0-2.2); ALKALINE PHOSPHATASE 288 IU/L (42-121); ALT ALANINE AMINOTRANSFERASE 77 IU/L (10-60); AST ASPARTATE AMINOTRANSFERASE 150 IU/L (10-42); BILIRUBIN,TOTAL 1.1 mg/dL (0.2-1.0); BUN - BLOOD UREA NITROGEN 13 mg/dL (6-20); CALCIUM 8.8 mg/dL (8.5-10.3); CARBON DIOXIDE - CO2 26 mmol/L (21-32); CHLORIDE 103 mmol/L (101-111); CREATININE 0.9 mg/dL (0.4-1.0); GFR - MDRD 60 (>89); GLUCOSE 94 mg/dL (70-100); MAGNESIUM 1.7 mg/dL (1.7-2.8); PHOSPHORUS 2.7 mg/dL (2.5-4.6); SODIUM 139 mmol/L (135-145); TOTAL PROTEIN 6.4 g/dL (6.7-8.2)
[2017-04-21] MEDS: SODIUM CHLORIDE FLUSH 0.9% 10 ML SYRINGE IVP SCH ×3 (09:56→22:02)
[2017-04-21] MEDS: POLYETHYLENE GLYCOL 3350 17 GM PACKET PO SCH (09:57)
[2017-04-21] MEDS: ASPIRIN 325 MG TABLET PO SCH (09:57)
[2017-04-21] MEDS: MULTIVITAMIN W/MINERALS TABLET PO SCH (09:57)
[2017-04-21] MEDS: SODIUM CHLORIDE 0.9% 1,000 ML IV SCH (16:30)
[2017-04-21] MEDS: SODIUM CHLORIDE FLUSH 0.9% 10 ML SYRINGE IVP PRN (16:30)
[2017-04-21] MEDS: ERTAPENEM 1 GM in SODIUM CHLORIDE 0.9% MINIBAG 100 ML IV SCH (20:59)
[2017-04-22] MEDS: SODIUM CHLORIDE 0.9% 1,000 ML IV SCH ×2 (01:21→09:53)
[2017-04-22] MEDS: IBUPROFEN 600 MG TABLET PO SCH ×2 (01:24→08:28)
[2017-04-22] MEDS: SODIUM CHLORIDE FLUSH 0.9% 10 ML SYRINGE IVP SCH (06:27)
[2017-04-22 06:36] LABS: BASOPHILS # (AUTO) 0.1 10^3/uL (0.0-0.1); BASOPHILS % (AUTO) 1.4 %; EOSINOPHILS # (AUTO) 0.4 10^3/uL (0.0-0.7); EOSINOPHILS % (AUTO) 7.5 %; HGB - HEMOGLOBIN 11.5 g/dL (12.0-16.0); LYMPHOCYTES # (AUTO) 1.6 10^3/uL (1.5-3.5); LYMPHOCYTES % (AUTO) 29.1 %; MEAN CORPUSCULAR HEMOGLOBIN 32.9 pg (27.0-31.0); MEAN CORPUSCULAR VOLUME 96.8 fL (81.0-99.0); MEAN PLATELET VOLUME 8.1 fL (7.9-10.8); MONOCYTES # (AUTO) 0.7 10^3/uL (0.0-1.0); MONOCYTES % (AUTO) 12.6 %; NEUTROPHILS # (AUTO) 2.7 10^3/uL (1.5-6.6); NEUTROPHILS % (AUTO) 49.4 %; PLT - PLATELET COUNT 96 10^3/uL (130-450); RED BLOOD COUNT 3.48 10^6/uL (4.20-5.40); RED CELL DISTRIBUTION WIDTH 14.4 % (12.0-15.0); WHITE BLOOD COUNT 5.5 x10^3/uL (4.8-10.8)
[2017-04-22 06:51] LABS: ALBUMIN 2.3 g/dL (3.2-5.5); ALBUMIN/GLOBULIN RATIO 0.8 (1.0-2.2); ALKALINE PHOSPHATASE 228 IU/L (42-121); ALT ALANINE AMINOTRANSFERASE 53 IU/L (10-60); AST ASPARTATE AMINOTRANSFERASE 91 IU/L (10-42); BILIRUBIN,TOTAL 0.9 mg/dL (0.2-1.0); BUN - BLOOD UREA NITROGEN 17 mg/dL (6-20); CARBON DIOXIDE - CO2 24 mmol/L (21-32); CHLORIDE 107 mmol/L (101-111); CREATININE 0.7 mg/dL (0.4-1.0); GFR - MDRD 80 (>89); GLUCOSE 80 mg/dL (70-100); MAGNESIUM 1.6 mg/dL (1.7-2.8); PHOSPHORUS 2.8 mg/dL (2.5-4.6); SODIUM 137 mmol/L (135-145); TOTAL PROTEIN 5.2 g/dL (6.7-8.2)
[2017-04-22 07:08] LABS: VBG PH 7.391 (7.31-7.41)
[2017-04-22] MEDS: POLYETHYLENE GLYCOL 3350 17 GM PACKET PO SCH (08:27)
[2017-04-22] MEDS: ASPIRIN 325 MG TABLET PO SCH (08:28)
[2017-04-22] MEDS: MULTIVITAMIN W/MINERALS TABLET PO SCH (08:28)
[2017-04-22 08:35] VITALS: BP 132/52
--- NOTE | 2017-04-22 11:42 | Discharge Plan ---
Discharge Plan Disposition: Home Health Service Condition: Fair Diet: Regular Activity Restrictions: Activity as Tolerated Shower Restrictions: No Driving Restrictions: No Weight Bearing: Full Weight Additional Instructions or Follow Up instructions: You presented with confusion which was likely secondary to an infection. You had a viral infection which caused hepatitis. Your infection seems to be resolving and you are now back to your baseline mental status. You will be discharged home with your daughter. You will need home health PT for your L1 spinal fracture. You will not need any antibiotics as it does not appear as though you had a bacterial infection. Drink plenty of fluids and continue to take your medications. No Smoking: If you smoke, Please STOP! Call for help. Follow-up with: KELI ANDERSON MD [Primary Care Provider] -
[2017-04-22 13:41] LABS: HEPATITIS A IGM NON-REACTIVE (NON-REACTIVE); HEPATITIS B CORE ANTIBODY IGM NON-REACTIVE (NON-REACTIVE); HEPATITIS B SURFACE ANTIGEN NON-REACTIVE (NON-REACTIVE); HEPATITIS C ANTIBODY NON-REACTIVE (NON-REACTIVE)
--- NOTE | 2017-04-22 16:20 | PROVIDER PROGRESS NOTE ---
Assessment/Plan - Problem List (1) Altered mental status Qualifiers: Altered mental status type: unspecified Qualified Code(s): R41.82 - Altered mental status, unspecified Assessment/Plan: Assessment/Plan: Resolved since empiric iv antibiotics started. Ammonia level wnl TSH wnl Brain MRI showed no concerning lesions. Head CT suspected small lacunar infarct but MRI says atherosclerosis of small vessels The daughter and recalled that Pt had a similar marked confusion when she had an infection of the groin after her peripheral vascular stents were placed approx 4-5 years ago. Also, the doctor at [facility] mentioned that Pt got confused with that recent CAP/UTI which they treated. Will minimize sedatives and opioids Patient seems to have cleared but today she is having nausea and vomiting and does not appear well The patient may have a viral GI illiness with hepatitis that lead to her AMS and is causing her current condition Will continue IV abx until symptoms resolve but this is likely viral Also will treat patient with IVFs and antiemetics (2) Transaminitis Assessment/Plan: LFTs slightly worse today with increased nausea and vomiting but no diarrhea Ammonia level was normal Likely secondary to viral syndrome with hepatitis Will continue to avoid hepatotoxic meds (no statin for now, etc) Symptomatic treatment (3) UTI (urinary tract infection) Qualifiers: Urinary tract infection type: acute cystitis Hematuria presence: without hematuria Qualified Code(s): N30.00 - Acute cystitis without hematuria Assessment/Plan: Pt on Ertepanem iv. The results of urine culture from Pt Ray were received and showed: she grew E coli AND Enterococcus faecalis, sensitivities were reviewed. Continue Ertepenam iv till discharge then stop abx (4) Right renal mass Assessment/Plan: This will need outpt W/U. Discussed this with and family. (5) Low back pain Assessment/Plan: The daughter reports that LBP is worse since she was transferred from our ER [facility] to this hospital bed, Ultram helps. L1 compression fracture plus spinal stenosis were newly diagnosed at [place] hospitalization. Continue current meds and will need home PT (6) Thrombocytopenia Assessment/Plan: Resolved (7) PVD (peripheral vascular disease) Assessment/Plan: continue ASA, good BP and cholesterol control. - Lab Result Lab results reviewed: Yes Fish Bone Diagrams: 04/22/17 06:23 04/22/17 06:23 - Diagnostic Imaging Results Diagnostic Imaging Results: Final report reviewed - Additional Planning Condition/Complexity: Guarded My Orders: My Active Orders 04/22/17 11:42 Discharge [RC] .ONCE Consult/Specialty: PT Plan Discussed with:: Patient, Family, Spouse Time Spent: 31-60 minutes Subjective - Subjective Patient Reports: Nausea (Patient vomiting this am, states she is also constipated. Not feeling well.) Nursing Reports: No Complaints Objective Vital Signs: Vital Signs - 24 hr 04/21/17 04/22/17 04/22/17 20:13 00:50 08:00 Temperature 37.1 C 37.0 C 36.3 C L Heart Rate [ 63 65 68 Brachial] Respiratory 16 16 12 Rate Blood Pressure 136/41 H 132/52 H [Left Brachial artery] Blood Pressure 115/43 L [Right Brachial artery] O2 Saturation 96 94 96 Oxygen O2 Source [With Activity] Room air O2 Source Room air I&O (Last 24 Hrs): Intake and Output Totals x24h 04/20/17 04/21/17 04/22/17 23:59 23:59 23:59 Intake Total 2840.000 1958.001 5697.416 Balance 2840.000 7401.961 6155.416 General: Alert, Oriented x3, Cooperative, Mild distress (Nauseated) HEENT: Atraumatic, PERRLA, EOMI, Other (Dry mucus membranes) Neck: Supple, No JVD, No thyromegaly, +2 carotid pulse wo bruit, No LAD Lymphatic: no adenopathy Neuro: Alert, Non Focal, CN 2-12 Grossly Intact, Oriented Times 3 Cardiovascular: Regular rate, Normal S1, Normal S2, No murmurs Respiratory: Chest non-tender, No respiratory distress, Breath sounds nml Abdomen: Normal bowel sounds, Soft, No tenderness, No hepatospenomegaly Extremities: No clubbing, No cyanosis, No edema, Normal pulses Skin: No rashes, No breakdown - Results Results: Laboratory Results WBC 5.5 x10^3/uL (4.8-10.8) 04/22/17 06:23 RBC 3.48 10^6/uL (4.20-5.40) L 04/22/17 06:23 Hgb 11.5 g/dL (12.0-16.0) L 04/22/17 06:23 Hct 33.7 % (37.0-47.0) L 04/22/17 06:23 MCV 96.8 fL (81.0-99.0) 04/22/17 06:23 MCH 32.9 pg (27.0-31.0) H 04/22/17 06:23 MCHC 34.0 g/dL (32.0-36.0) 04/22/17 06:23 RDW 14.4 % (12.0-15.0) 04/22/17 06:23 Plt Count 96 10^3/uL (130-450) L 04/22/17 06:23 MPV 8.1 fL (7.9-10.8) 04/22/17 06:23 Neut # 2.7 10^3/uL (1.5-6.6) 04/22/17 06:23 Lymph # 1.6 10^3/uL (1.5-3.5) 04/22/17 06:23 [place] # 0.7 10^3/uL (0.0-1.0) 04/22/17 06:23 Eos # 0.4 10^3/uL (0.0-0.7) 04/22/17 06:23 Baso # 0.1 10^3/uL (0.0-0.1) 04/22/17 06:23 Absolute Nucleated RBC 0.00 x10^3/uL 04/22/17 06:23 Nucleated RBC % 0.1 /100WBC 04/22/17 06:23 PT 15.4 secs (9.9-12.6) H 04/19/17 00:35 INR 1.4 (0.8-1.2) H 04/19/17 00:35 VBG pH 7.391 (7.31-7.41) 04/22/17 06:23 Ionized Calcium 1.12 mmol/L (1.15-1.33) L 04/22/17 06:23 Sodium 137 mmol/L (135-145) 04/22/17 06:23 Potassium 3.6 mmol/L (3.5-5.0) 04/22/17 06:23 Chloride 107 mmol/L (101-111) 04/22/17 06:23 Carbon Dioxide 24 mmol/L (21-32) 04/22/17 06:23 Anion Gap 6.0 (6-13) 04/22/17 06:23 BUN 17 mg/dL (6-20) 04/22/17 06:23 Creatinine 0.7 mg/dL (0.4-1.0) 04/22/17 06:23 Estimated GFR (MDRD) 80 (>89) L 04/22/17 06:23 Glucose 80 mg/dL (70-100) 04/22/17 06:23 Lactic Acid 1.8 mmol/L (0.5-2.2) 04/19/17 18:05 Calcium 8.0 mg/dL (8.5-10.3) L 04/22/17 06:23 Ionized Calcium YES 04/22/17 06:23 Phosphorus 2.8 mg/dL (2.5-4.6) 04/22/17 06:23 Magnesium 1.6 mg/dL (1.7-2.8) L 04/22/17 06:23 Total Bilirubin 0.9 mg/dL (0.2-1.0) 04/22/17 06:23 Direct Bilirubin 0.5 mg/dL (0.1-0.5) 04/21/17 04:43 AST 91 IU/L (10-42) H 04/22/17 06:23 ALT 53 IU/L (10-60) 04/22/17 06:23 Alkaline Phosphatase 228 IU/L (42-121) H 04/22/17 06:23 Ammonia 17.1 umol/L (7-35) 04/20/17 06:52 Total Creatine Kinase 60 IU/L (22-269) 04/20/17 00:35 CK-MB (CK-2) 1.9 ng/mL (0.6-6.3) 04/19/17 00:35 Troponin I < 0.04 ng/mL (<0.49) 04/19/17 00:35 Total Protein 5.2 g/dL (6.7-8.2) L 04/22/17 06:23 Albumin 2.3 g/dL (3.2-5.5) L 04/22/17 06:23 Globulin 2.9 g/dL (2.1-4.2) 04/22/17 06:23 Albumin/Globulin Ratio 0.8 (1.0-2.2) L 04/22/17 06:23 Lipase 16 U/L (22-51) L 04/19/17 18:05 TSH 1.32 uIU/mL (0.34-5.60) 04/20/17 06:52 Free T4 1.09 ng/dL (0.58-1.64) 04/20/17 06:52 Urine Color LT. YELLOW 04/20/17 00:15 Urine Clarity CLEAR (CLEAR) 04/20/17 00:15 Urine pH 7.0 PH (5.0-7.5) 04/20/17 00:15 Ur Specific [place] <=1.005 (1.002-1.030) 04/20/17 00:15 Urine Protein NEGATIVE mg/dL (NEGATIVE) 04/20/17 00:15 Urine Glucose (UA) NEGATIVE mg/dL (NEGATIVE) 04/20/17 00:15 Urine Ketones NEGATIVE mg/dL (NEGATIVE) 04/20/17 00:15 Urine Occult Blood NEGATIVE (NEGATIVE) 04/20/17 00:15 Urine Nitrite NEGATIVE (NEGATIVE) 04/20/17 00:15 Urine Bilirubin NEGATIVE (NEGATIVE) 04/20/17 00:15 Urine Urobilinogen 0.2 (NORMAL) E.U./dL (NORMAL) 04/20/17 00:15 Ur Leukocyte Esterase NEGATIVE (NEGATIVE) 04/20/17 00:15 Urine RBC 0-5 /HPF (0-5) 04/19/17 17:54 Urine WBC 11-25 /HPF (0-5) H 04/19/17 17:54 Ur Squamous Epith Cells MANY Squamous (<= Few) H 04/19/17 17:54 Urine Bacteria Few /HPF (None Seen) 04/19/17 17:54 Ur Microscopic Review NOT INDICATED 04/20/17 00:15 Urine Culture Comments NOT INDICATED 04/20/17 00:15 Salicylates < 6.0 mg/dL 04/19/17 18:08 Acetaminophen < 10 ug/mL (10-30) L 04/19/17 18:08 Ethyl Alcohol < 5.0 mg/dL 04/19/17 18:08 Hepatitis A IgM Ab NON-REACTIVE (NON-REACTIVE) 04/20/17 06:52 Hep Bs Antigen NON-REACTIVE (NON-REACTIVE) 04/20/17 06:52 Hep B Core IgM Ab NON-REACTIVE (NON-REACTIVE) 04/20/17 06:52 Hepatitis C Antibody NON-REACTIVE (NON-REACTIVE) 04/20/17 06:52 Hep C Ab Signal/Cutoff 0.00 (<1.00) 04/20/17 06:52
--- NOTE | 2017-04-22 16:25 | DISCHARGE SUMMARY ---
Discharge Summary Admit Date: 04/19/17 Discharge Date: 04/22/17 Discharging Provider: [place] Min MD Primary Care Provider: Maxim Guaman Code Status: Attempt Resuscitation Condition at Discharge: Fair Discharge Disposition: 06 Home Health Service - DIAGNOSES Admission Diagnoses: 1. Abnormal liver function tests 2. Encephalopathy 3. Right renal mass 4. Resolving mid lung infiltrate 5. L1 compression fracture 6. Thrombocytopenia 7. Peripheral vascular disease Discharge Diagnoses with Status of Each Condition: 1. Altered mental status: Resolved 2. Transaminitis: Improving 3. Urinary tract infection: Resolved 4. Right renal mass: Stable 5. Low back pain: Stable 6. Thrombocytopenia: Stable 7. Peripheral vascular disease: Stable - HPI History of Present Illness: Patient is an 82-year-old female with a past medical history significant for hypertension, dyslipidemia, peripheral vascular disease status post left iliac stent and femoralfemoral graft: Spinal stenosis at L4-L5 level with a compression fracture at L1, history of thrombocytopenia, CVA and recent hospitalization at [facility] for community-acquired pneumonia and influenza a who presented to the emergency department with a chief complaint of altered mental status. On admission to the hospital the patient was confused and could not meaningfully interact. The history was provided by the family. The patient's daughter reported that the patient is usually active with no dementia or memory problems. She has never been confused in the past except during the past few weeks when she became ill. The patient was hospitalized in early March at [facility] where she was found to have influenza A and a right middle lobe pneumonia as well as a urinary tract infection. The patient was also found to have an L1 compression fracture at that time after a mechanical fall at home. The patient did have some altered mental status and confusion during that hospitalization the patient did undergo a CT head during that time and was found to have a small right basal ganglia lacunar infarct on CT but was asymptomatic at that time. During her 3 day hospitalization the patient received IV antibiotics for pneumonia and UTI which included Rocephin and vancomycin she also received Tamiflu for influenza. The patient's daughter reports that after a couple of days of antibiotics the patient's mental status cleared up and the patient went back to her normal state of health. The patient was discharged on day 3 and was sent home to finish and course of antibiotics Omnicef and doxycycline. The patient also received a brace for her L1 compression fracture. The patient and her live alone in [facility] and the patient went home with her after she was discharged. She is doing reasonably well for about a couple of days however subsequently she again began to develop lethargy and weakness. The patient's daughter who lives in [facility] visited the patient a few days ago on April 16, and found that the patient was again declining with her function; therefore, decided to bring the patient to home with her and take care of her. During the past 3 days the patient has become increasingly lethargic and profoundly confused. She had some back pain and on the was given baclofen for muscle spasms; however even before that she was confused. The daughter described that there was some episodes when the patient would clear her mental status but then again would become altered. The mental status had been fluctuating even before getting baclofen. The patient was given tramadol which she has been on for a long time for her back pain. Upon presentation to [facility] the patient was hematologically stable and afebrile. ER workup showed abnormal liver enzymes including a bilirubin of 1.2, AST of 0.224 , alk phos of 322 and ALT of 99. The patient's lipase was normal her UA showed moderate leukocyte esterase, squamous epithelial cells, some bacteria and some white cells. This was not a catheterized urine and it could be a contaminant. Regarding additional laboratory patient's WBC was normal. The patient's lactic acid was unremarkable. Other than her liver function test abnormality no significant abnormality was seen. Initially at the ER the patient underwent an abdominal ultrasound which showed a common bile duct around 1 cm. In addition there was a cirrhotic appearing liver and solid upper pole renal mass. The gallbladder was absent, consistent with history of cholecystectomy. The abdominal ultrasound was followed up with a CT scan of the abdomen and pelvis, which confirmed a right upper lobe renal mass concerning for neoplasm. The common bile duct was described prominent; however with a post cholecystectomy situation, there was diverticulosis without diverticulitis. Unchanged L1 fracture and L4-L5 spinal stenosis were also described and there were some vascular stents and grafts which were patent and unremarkable. Chest imaging included chest x-ray, which showed resolving right mid lobe infiltrate and some chronic findings. No acute abnormality was seen. Follow-up for his this chest x-ray was recommended, given the chronic findings and resolving right-sided infiltrate. - HOSPITAL COURSE Hospital Course: During the hospitalization the patient was treated with IV ertapenem after looking at her urine cultures from [place]. The patient however did not grow anything on her urine culture during this hospitalization. With IV antibiotics and IV fluids the patient's mental status seemed to resolve. On presentation the patient did have a lymphopenia and she continued to have elevated LFTs and had vague symptoms of nausea and vomiting. The patient did not have any obvious bacterial infection as her chest x-ray and urine culture were negative. The patient's blood cultures were also negative for 2 days. The patient's altered mental status did resolve after 1 day and she was back to her baseline by the time of discharge. It was presumed that the patient likely had a viral gastrointestinal infection causing hepatitis and likely led to her altered mental status. The patient was given supportive care and was sent home with advice to drink plenty of fluids. The patient's antibiotics were stopped prior to discharge and it was felt that there was no need for further antibiotics. The patient was advised to follow-up on her renal mass that was found on CT scan. The patient will need to follow-up with her primary care physician for the renal mass. The patient was also found to be having significant difficulty with ambulation secondary to pain from her L1 compression fracture and was sent home with home PT. The patient was discharged home in stable condition. - ALLERGIES Allergies/Adverse Reactions: Allergies Allergy/AdvReac Type Severity Reaction Status Date / Time beclomethasone Allergy Mild Unknown Verified 04/19/17 21:20 adhesive tape AdvReac Intermediate Unknown Verified 04/19/17 21:23 codeine AdvReac Intermediate Nausea Verified 04/19/17 21:24 heparin AdvReac Intermediate Unknown Verified 04/19/17 21:18 hydrocodone AdvReac Intermediate Unknown Verified 04/19/17 21:21 oxycodone AdvReac Intermediate Unknown Verified 04/19/17 21:19 promethazine AdvReac Intermediate Unknown Verified 04/19/17 21:20 - MEDICATIONS Home Medications: Ambulatory Orders Medication Instructions Recorded Confirmed ALPRAZolam [Alprazolam] 1 mg PO BID PRN 04/19/17 04/20/17 Aspirin 325 mg PO DAILYWM 04/19/17 04/21/17 Atenolol 50 mg PO DAILY 04/19/17 04/20/17 Atorvastatin Calcium 40 mg PO QPM 04/19/17 04/21/17 Benzonatate 1 cap PO Q8HR PRN 04/19/17 04/19/17 Gabapentin 300 - 600 mg PO QID 04/19/17 04/20/17 Ibuprofen 200 mg PO QID PRN 04/19/17 04/19/17 Vit A/Vit C/Vit E/Zinc/Copper 1 tab PO BID 04/19/17 04/19/17 [Preservision Areds Softgel] hydroCHLOROthiazide 25 mg PO DAILY 04/19/17 04/21/17 [Hydrochlorothiazide] traMADol [Ultram] 50 mg PO Q6H PRN 04/19/17 04/21/17 - PHYSICAL EXAM AT DISCHARGE General Appearance: positive: No acute distress, Alert Eyes Bilateral: positive: Normal inspection, PERRL, EOMI, No lid inflammation, Conjunctivae nml, No scleral icterus ENT: positive: ENT inspection nml, Pharynx nml, No signs of dehydration. negative: Purulent nasal drainage, Pharyngeal erythema, Oral lesions Neck: positive: Nml inspection, Thyroid nml, No JVD, Trachea midline. negative : Thyromegaly, Lymphadenopathy (R), Lymphadenopathy (L), Stiff neck, Carotid bruit, Tracheal deviation Respiratory: positive: Chest non-tender, No respiratory distress, Breath sounds nml. negative: Wheezes, Rales, Rhonchi Cardiovascular: positive: Regular rate & rhythm, No murmur, No gallop Peripheral Pulses: positive: 2+ Abdomen: positive: Non-tender, No organomegaly, Nml bowel sounds, No distention. negative: Guarding, Rebound, Hepatomegaly Back: positive: Nml inspection. negative: CVA tenderness (R), CVA tenderness (L ) Skin: positive: Color nml, No rash, Warm. negative: Cyanosis, Diaphoresis, Pallor Extremities: positive: Nml appearance, No pedal edema, Other (Decreased range of motion of her spine secondary to L1 compression fracture.) Neurologic/Psychiatric: positive: Oriented x3, CN's nml (2-12), Motor nml, Sensation nml, Mood/affect nml - LABS Result Diagrams: 04/22/17 06:23 04/22/17 06:23 Other Lab Results: Laboratory Results WBC 5.5 x10^3/uL (4.8-10.8) 04/22/17 06:23 RBC 3.48 10^6/uL (4.20-5.40) L 04/22/17 06:23 Hgb 11.5 g/dL (12.0-16.0) L 04/22/17 06:23 Hct 33.7 % (37.0-47.0) L 04/22/17 06:23 MCV 96.8 fL (81.0-99.0) 04/22/17 06:23 MCH 32.9 pg (27.0-31.0) H 04/22/17 06:23 MCHC 34.0 g/dL (32.0-36.0) 04/22/17 06:23 RDW 14.4 % (12.0-15.0) 04/22/17 06:23 Plt Count 96 10^3/uL (130-450) L 04/22/17 06:23 MPV 8.1 fL (7.9-10.8) 04/22/17 06:23 Neut # 2.7 10^3/uL (1.5-6.6) 04/22/17 06:23 Lymph # 1.6 10^3/uL (1.5-3.5) 04/22/17 06:23 [place] # 0.7 10^3/uL (0.0-1.0) 04/22/17 06:23 Eos # 0.4 10^3/uL (0.0-0.7) 04/22/17 06:23 Baso # 0.1 10^3/uL (0.0-0.1) 04/22/17 06:23 Absolute Nucleated RBC 0.00 x10^3/uL 04/22/17 06:23 Nucleated RBC % 0.1 /100WBC 04/22/17 06:23 PT 15.4 secs (9.9-12.6) H 04/19/17 00:35 INR 1.4 (0.8-1.2) H 04/19/17 00:35 VBG pH 7.391 (7.31-7.41) 04/22/17 06:23 Ionized Calcium 1.12 mmol/L (1.15-1.33) L 04/22/17 06:23 Sodium 137 mmol/L (135-145) 04/22/17 06:23 Potassium 3.6 mmol/L (3.5-5.0) 04/22/17 06:23 Chloride 107 mmol/L (101-111) 04/22/17 06:23 Carbon Dioxide 24 mmol/L (21-32) 04/22/17 06:23 Anion Gap 6.0 (6-13) 04/22/17 06:23 BUN 17 mg/dL (6-20) 04/22/17 06:23 Creatinine 0.7 mg/dL (0.4-1.0) 04/22/17 06:23 Estimated GFR (MDRD) 80 (>89) L 04/22/17 06:23 Glucose 80 mg/dL (70-100) 04/22/17 06:23 Lactic Acid 1.8 mmol/L (0.5-2.2) 04/19/17 18:05 Calcium 8.0 mg/dL (8.5-10.3) L 04/22/17 06:23 Ionized Calcium YES 04/22/17 06:23 Phosphorus 2.8 mg/dL (2.5-4.6) 04/22/17 06:23 Magnesium 1.6 mg/dL (1.7-2.8) L 04/22/17 06:23 Total Bilirubin 0.9 mg/dL (0.2-1.0) 04/22/17 06:23 Direct Bilirubin 0.5 mg/dL (0.1-0.5) 04/21/17 04:43 AST 91 IU/L (10-42) H 04/22/17 06:23 ALT 53 IU/L (10-60) 04/22/17 06:23 Alkaline Phosphatase 228 IU/L (42-121) H 04/22/17 06:23 Ammonia 17.1 umol/L (7-35) 04/20/17 06:52 Total Creatine Kinase 60 IU/L (22-269) 04/20/17 00:35 CK-MB (CK-2) 1.9 ng/mL (0.6-6.3) 04/19/17 00:35 Troponin I < 0.04 ng/mL (<0.49) 04/19/17 00:35 Total Protein 5.2 g/dL (6.7-8.2) L 04/22/17 06:23 Albumin 2.3 g/dL (3.2-5.5) L 04/22/17 06:23 Globulin 2.9 g/dL (2.1-4.2) 04/22/17 06:23 Albumin/Globulin Ratio 0.8 (1.0-2.2) L 04/22/17 06:23 Lipase 16 U/L (22-51) L 04/19/17 18:05 TSH 1.32 uIU/mL (0.34-5.60) 04/20/17 06:52 Free T4 1.09 ng/dL (0.58-1.64) 04/20/17 06:52 Urine Color LT. YELLOW 04/20/17 00:15 Urine Clarity CLEAR (CLEAR) 04/20/17 00:15 Urine pH 7.0 PH (5.0-7.5) 04/20/17 00:15 Ur Specific [place] <=1.005 (1.002-1.030) 04/20/17 00:15 Urine Protein NEGATIVE mg/dL (NEGATIVE) 04/20/17 00:15 Urine Glucose (UA) NEGATIVE mg/dL (NEGATIVE) 04/20/17 00:15 Urine Ketones NEGATIVE mg/dL (NEGATIVE) 04/20/17 00:15 Urine Occult Blood NEGATIVE (NEGATIVE) 04/20/17 00:15 Urine Nitrite NEGATIVE (NEGATIVE) 04/20/17 00:15 Urine Bilirubin NEGATIVE (NEGATIVE) 04/20/17 00:15 Urine Urobilinogen 0.2 (NORMAL) E.U./dL (NORMAL) 04/20/17 00:15 Ur Leukocyte Esterase NEGATIVE (NEGATIVE) 04/20/17 00:15 Urine RBC 0-5 /HPF (0-5) 04/19/17 17:54 Urine WBC 11-25 /HPF (0-5) H 04/19/17 17:54 Ur Squamous Epith Cells MANY Squamous (<= Few) H 04/19/17 17:54 Urine Bacteria Few /HPF (None Seen) 04/19/17 17:54 Ur Microscopic Review NOT INDICATED 04/20/17 00:15 Urine Culture Comments NOT INDICATED 04/20/17 00:15 Salicylates < 6.0 mg/dL 04/19/17 18:08 Acetaminophen < 10 ug/mL (10-30) L 04/19/17 18:08 Ethyl Alcohol < 5.0 mg/dL 04/19/17 18:08 Hepatitis A IgM Ab NON-REACTIVE (NON-REACTIVE) 04/20/17 06:52 Hep Bs Antigen NON-REACTIVE (NON-REACTIVE) 04/20/17 06:52 Hep B Core IgM Ab NON-REACTIVE (NON-REACTIVE) 04/20/17 06:52 Hepatitis C Antibody NON-REACTIVE (NON-REACTIVE) 04/20/17 06:52 Hep C Ab Signal/Cutoff 0.00 (<1.00) 04/20/17 06:52 Microbiology 04/20/17 02:00 Blood Blood Culture - Preliminary NO GROWTH AFTER 2 DAYS 04/20/17 00:35 Blood Blood Culture - Preliminary NO GROWTH AFTER 2 DAYS - DIAGNOSTIC IMAGING Diagnostic Imaging Results: Final report reviewed Diagnostic Imaging Results Comments: EXAM: MRI BRAIN WITHOUT CONTRAST EXAM DATE: 04/20/2017 11:15 AM. CLINICAL HISTORY: 82-year-old with altered mental status COMPARISON: CT head 04/06/2017; CT head 07/07/2012. TECHNIQUE: Multiplanar, multisequence T1-weighted and fluid-sensitive MR sequences of the brain were performed. Sequences optimized for routine evaluation. Other: None. IV Contrast: None. FINDINGS: Brain Volume: Normal for age. Parenchyma/Dura: No acute parenchymal hemorrhage, mass, or midline shift. There is mild bilateral areas of T2/FLAIR signal hyperintensity seen. Old chronic lacunar infarct of the right putamen. There is arc-linear areas of DWI signal hyperintensity within the middle cranial fossa and right orbit that are felt to be artifactual and not represent areas of restricted diffusion. No areas of restricted diffusion seen to suggest acute infarct. No old hemorrhagic blood products. Ventricles/Cisterns: No hydrocephalus. No abnormal extra-axial fluid collection or hemorrhage. Cisterns are patent. Orbits: Changes of bilateral lens replacement. Sella [place]: The pituitary gland, cavernous sinuses, suprasellar cistern and optic chiasm are unremarkable. IAC: Symmetric and unremarkable. Vasculature: Normal signal flow void is seen in the major arterial structures at the skull base. Sinuses: Minimal mucosal thickening of the maxillary sinus and ethmoid air cells. Moderate mucosal thickening left sphenoid sinus. Mastoid air cells and middle ear cavities are clear. Bones: No focal pathologic appearing marrow signal changes. Other: None. IMPRESSION: 1. No definite acute infarct, intracranial hemorrhage, mass, hydrocephalus, or midline shift. 2. Mild white matter changes that while nonspecific, most likely represent sequela of chronic small vessel ischemic disease. EXAM: CAROTID DOPPLER ULTRASOUND EXAM DATE: 04/20/2017 09:03 AM. CLINICAL HISTORY: Altered mental status. Prior left carotid endarterectomy. COMPARISON: None. TECHNIQUE: Real-time sonographic vascular imaging was performed by the quartz orientator through the carotid arterial system with a linear transducer utilizing color-flow, Doppler flow and spectral analysis. Multiple sales solutions representative static images were saved for review. FINDINGS: Right: Atherosclerotic plaque in the common carotid artery and in the proximal internal and external carotid arteries. No abnormal elevation of internal carotid artery velocity. Mild elevation of external carotid artery velocities. Antegrade flow of the vertebral artery. Left: Plaque in the common carotid artery and in the proximal internal and external carotid artery. Moderate elevation of external carotid artery flow. Mild increase in internal carotid artery velocity. Antegrade flow in the vertebral artery. EXAM: CT ABDOMEN AND PELVIS EXAM DATE: 04/19/2017 09:42 PM. CLINICAL HISTORY: Abdominal pain. Elevated LFTs. Right renal mass. COMPARISONS: None. TECHNIQUE: Routine helical CT imaging was performed through the abdomen and pelvis. IV contrast: 100ML ISOVUE 300. Enteric contrast: No. Reconstructions: Coronal and sagittal. In accordance with CT protocol optimization, one or more of the following dose reduction techniques were utilized for this exam: automated exposure control, adjustment of mA and/or KV based on patient size, or use of iterative reconstructive technique. FINDINGS: Lung Bases: Mitral valve calcification noted, otherwise unremarkable.. Liver: Normal. No masses. Gallbladder/Bile Ducts: Prominent common bile duct postcholecystectomy. Spleen: Normal. Pancreas: Normal. Adrenal Glands: Normal. Kidneys: Exophytic area of abnormal enhancement, posterior upper right kidney, 3.5 cm. Otherwise unremarkable. Peritoneal Cavity/Bowel: Diverticulosis. No free fluid, free air or adenopathy. No masses or acute inflammatory process. The appendix is well visualized and normal. Pelvic Organs: Hysterectomy. Unremarkable bladder. Vasculature: No aortic aneurysm. Advanced atherosclerotic calcification. Left iliac artery stent. Right common iliac artery occlusion, with patent femorofemoral graft. Bones: Two column L1 vertebral body fracture, and mild anterolisthesis at L4-L5 , unchanged. Other: None. IMPRESSION: 1. Diverticulosis without diverticulitis or other acute bowel abnormality. 2. Prominent common bile duct post-cholecystectomy. 3. Posterior right upper renal cortical abnormality concerning for neoplasm. 4. 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 5. Unchanged L1 fracture and L4-L5 anterolisthesis. EXAM: ABDOMEN ULTRASOUND LIMITED, RUQ EXAM DATE: 04/19/2017 09:00 PM. CLINICAL HISTORY: Elevated LFTs. COMPARISON: None. TECHNIQUE: Real-time scanning was performed with static images obtained. FINDINGS: Liver: Normal in size. Hyperechoic heterogeneous echotexture with lobulated capsule. 16.6 cm. Main portal vein flow: Hepatopetal. Gallbladder: Surgically absent Biliary System: CBD measures 10 mm. Abnormally dilated. Other: The visualized pancreas is unremarkable. The right kidney measures 10.9, with a solid upper pole cortical mass 2.8 x 2.5 x 2.0 cm. IMPRESSION: 1. Cirrhotic appearing liver. 2. Absent gallbladder with abnormal common bile duct diameter of 10 mm. 3. Solid upper pole renal mass noted. EXAM: CHEST RADIOGRAPHY EXAM DATE: 04/19/2017 08:19 PM. CLINICAL HISTORY: Cough, recent pneumonia. COMPARISON: 04/07/2017. TECHNIQUE: 1 view. FINDINGS: Lungs/Pleura: Local infiltrate in right midlung zone on previous study has largely resolved. No change of density in left costophrenic angle, possibly related to fat pad and other soft tissues. No new infiltrate or consolidation. No effusion or pneumothorax. Mediastinum: Within exam limitations, the cardiomediastinal contour is normal. Other: Degenerative changes. IMPRESSION: Resolving infiltrate on the right, other chronic findings as noted. Continued follow- up is recommended. - FOLLOW UP Follow Up: The patient was discharged home in stable condition will follow up with her primary care physician regarding her renal mass seen on CT scan. She will likely need a biopsy to be set up as an outpatient. The patient was not discharged with any antibiotics and will be seen by home health PT for her L1 compression fracture. - TIME SPENT Time Spent in Discharge (Minutes): 45
== END 2017-04-22 13:30 | disposition home health service (06) | DRG 441 ==
LOC: ED 16:27 → MS2 04-20 00:12
PROVIDERS: ADMIT Internal Medicine; ATTEND Internal Medicine
DX: R74.0 Nonspecific elevation of levels of transaminase and lactic acid dehydrogenase [LDH] (principal); B19.9 Unspecified viral hepatitis without hepatic coma; N28.89 Other specified disorders of kidney and ureter; G89.29 Other chronic pain; E78.00 Pure hypercholesterolemia, unspecified; G93.41 Metabolic encephalopathy; F41.9 Anxiety disorder, unspecified; N30.00 Acute cystitis without hematuria; I10 Essential (primary) hypertension; A08.4 Viral intestinal infection, unspecified; S32.019D Unspecified fracture of first lumbar vertebra, subsequent encounter for fracture with routine healing; D69.6 Thrombocytopenia, unspecified; B96.20 Unspecified Escherichia coli [E. coli] as the cause of diseases classified elsewhere; B95.2 Enterococcus as the cause of diseases classified elsewhere; I73.9 Peripheral vascular disease, unspecified; E78.5 Hyperlipidemia, unspecified; M48.061 Spinal stenosis, lumbar region without neurogenic claudication; Z90.49 Acquired absence of other specified parts of digestive tract; Z95.828 Presence of other vascular implants and grafts; Z86.73 Personal history of transient ischemic attack (TIA), and cerebral infarction without residual deficits; Z87.01 Personal history of pneumonia (recurrent); Z79.82 Long term (current) use of aspirin; Z88.8 Allergy status to other drugs, medicaments and biological substances
CPT/HCPCS: 36415; 70551; 71045; 74177; 76705; 80053; 80074; 80076; 80307; 80320; 80329; 81001; 81003; 82140; 82330; 82550; 82553; 83605; 83690; 83735; 84100; 84439; 84443; 84484; 85025; 85610; 87040; 87086; 87275; 87276; 93005; 93880; 96374; 99284

== ENCOUNTER 2017-04-24 11:31 | Outpatient (CLI) | payer MEDICARE, OTHER | END 2017-04-24 11:32 | disposition critical access hospital (66) | LOC: EMS 11:31 | PROVIDERS: ATTEND Surgery | DX: M54.9 Dorsalgia, unspecified (principal) | CPT/HCPCS: A0425; A0429 ==

== ENCOUNTER 2017-04-24 11:45 | Emergency (ER) | payer MEDICARE, OTHER ==
--- NOTE | 2017-04-24 12:02 | ED Physician Documentation ---
PD HPI BACK PAIN - Stated complaint Stated Complaint: BACK PX - History obtained from History obtained from: Patient, Family, EMS - History of Present Illness Timing - onset: Today Timing - duration: Minutes Timing - details: Abrupt onset, Still present Location: Mid, Lower Quality: Pain, Spasm, Sharp, Similar to prior episodes Associated symptoms: No: Fever, Weakness, Numbness, Incontinent of urine, Unable to urinate, Hematuria, Incontinent of stool Improves with: Rest, Position Worsened by: Movement Similar symptoms before: Diagnosis (L1 compression fracture) Recently seen: Admitted - Additional information Additional information: 82-year-old female had a fall on 04/05/2017 and has an L1 compression fracture. Since that time she has had some issues with increased pain and urinary tract infection. She has been in the hospital both here and in [place]. She has multiple imaging procedures as well. She was admitted in the hospital last Saturday with urinary tract infection discharged on Saturday and was home yesterday feeling somewhat better. Today she took her medications in the morning she had her usual routine and she sat down and was unable to get back up. Review of Systems Constitutional: reports: Fatigue. denies: Fever, Chills, Myalgias Eyes: denies: Decreased vision Ears: denies: Ear pain Nose: denies: Congestion Throat: denies: Sore throat Cardiac: denies: Chest pain / pressure, Palpitations Respiratory: denies: Dyspnea, Cough GI: denies: Abdominal Pain, Nausea, Vomiting : denies: Dysuria, Frequency Skin: denies: Rash Musculoskeletal: reports: Back pain. denies: Neck pain, Extremity pain Neurologic: denies: Generalized weakness, Focal weakness, Numbness PD PAST MEDICAL HISTORY - Past Medical History Cardiovascular: Hypertension, High cholesterol Respiratory: Pneumonia : Incontinence Psych: Claustrophobia Musculoskeletal: Osteoporosis, Chronic back pain Derm: Herpes zoster - Past Surgical History Past Surgical History: Yes General: Cholecystectomy, Colonoscopy Ortho: Carpal Tunnel surgery, Spine surgery HEENT: Tonsil/Adenoidectomy - Present Medications Home Medications: Ambulatory Orders Medication Instructions Recorded Confirmed ALPRAZolam [Alprazolam] 1 mg PO BID PRN 04/19/17 04/20/17 Aspirin 325 mg PO DAILYWM 04/19/17 04/21/17 Atenolol 50 mg PO DAILY 04/19/17 04/20/17 Atorvastatin Calcium 40 mg PO QPM 04/19/17 04/21/17 Benzonatate 1 cap PO Q8HR PRN 04/19/17 04/19/17 Gabapentin 300 - 600 mg PO QID 04/19/17 04/20/17 Ibuprofen 200 mg PO QID PRN 04/19/17 04/19/17 Vit A/Vit C/Vit E/Zinc/Copper 1 tab PO BID 04/19/17 04/19/17 [Preservision Areds Softgel] hydroCHLOROthiazide 25 mg PO DAILY 04/19/17 04/21/17 [Hydrochlorothiazide] traMADol [Ultram] 50 mg PO Q6H PRN 04/19/17 04/21/17 - Allergies Allergies/Adverse Reactions: Allergies Allergy/AdvReac Type Severity Reaction Status Date / Time beclomethasone Allergy Mild Unknown Verified 04/19/17 21:20 adhesive tape AdvReac Intermediate Unknown Verified 04/19/17 21:23 codeine AdvReac Intermediate Nausea Verified 04/19/17 21:24 heparin AdvReac Intermediate Unknown Verified 04/19/17 21:18 hydrocodone AdvReac Intermediate Unknown Verified 04/19/17 21:21 oxycodone AdvReac Intermediate Unknown Verified 04/19/17 21:19 promethazine AdvReac Intermediate Unknown Verified 04/19/17 21:20 - Social History Does the pt smoke?: No Smoking Status: Former smoker Does the pt have substance abuse?: No PD ED PE NORMAL - Vitals Vital signs reviewed: Yes - General General: Alert and oriented X 3, No acute distress, Well developed/nourished - HEENT HEENT: Atraumatic, PERRL - Neck Neck: Supple, no meningeal sign - Cardiac Cardiac: RRR, No murmur - Respiratory Respiratory: No respiratory distress, Clear bilaterally - Abdomen Abdomen: Soft, Non tender - Back Back: No CVA TTP, Other (The patient is in an L/spine brace ) - Derm Derm: Normal color, Warm and dry, No rash - Extremities Extremities: No deformity, No edema - Neuro Neuro: Alert and oriented X 3, foot caster 2-12 intact, No motor deficit, No sensory deficit, Normal speech Eye Opening: Spontaneous Motor: Obeys Commands Verbal: Oriented GCS Score: 15 - Psych Psych: Normal mood, Normal affect Results - Vitals Vitals: Vital Signs - 24 hr 04/24/17 04/24/17 04/24/17 12:00 13:05 15:22 Temperature 36.6 C Heart Rate 79 72 71 Respiratory 18 18 18 Rate Blood Pressure 143/61 H 119/51 L 117/54 L O2 Saturation 97 100 99 04/24/17 16:40 Temperature Heart Rate 69 Respiratory 15 Rate Blood Pressure 127/54 L O2 Saturation 99 Oxygen O2 Source [With Activity] Room air O2 Source Room air - Labs Labs: Laboratory Tests 04/24/17 04/24/17 04/24/17 12:24 12:24 12:24 WBC 6.2 RBC 3.80 L Hgb 12.6 Hct 35.0 L MCV 92.1 MCH 33.1 H MCHC 36.0 RDW 13.5 Plt Count 131 MPV 7.1 L Neut # 3.4 Lymph # 1.4 L [place] # 0.8 Eos # 0.4 Baso # 0.2 H Absolute Nucleated RBC 0.00 Nucleated RBC % 0.0 Sodium 140 Potassium 4.1 Chloride 106 Carbon Dioxide 24 Anion Gap 10.0 BUN 12 Creatinine 0.7 Estimated GFR (MDRD) 80 L Glucose 96 Calcium 8.6 Total Bilirubin 1.1 H AST 76 H ALT 48 Alkaline Phosphatase 225 H Troponin I 0.16 Total Protein 6.3 L Albumin 2.8 L Globulin 3.5 Albumin/Globulin Ratio 0.8 L Lipase 20 L Urine Color Urine Clarity Urine pH Ur Specific [place] Urine Protein Urine Glucose (UA) Urine Ketones Urine Occult Blood Urine Nitrite Urine Bilirubin Urine Urobilinogen Ur Leukocyte Esterase Urine RBC Urine WBC Urine WBC Clumps Ur Epithelial Cells Ur Squamous Epith Cells Urine Bacteria Ur Microscopic Review Urine Culture Comments 04/24/17 04/24/17 13:40 15:25 WBC RBC Hgb Hct MCV MCH MCHC RDW Plt Count MPV Neut # Lymph # [place] # Eos # Baso # Absolute Nucleated RBC Nucleated RBC % Sodium Potassium Chloride Carbon Dioxide Anion Gap BUN Creatinine Estimated GFR (MDRD) Glucose Calcium Total Bilirubin AST ALT Alkaline Phosphatase Troponin I 0.15 Total Protein Albumin Globulin Albumin/Globulin Ratio Lipase Urine Color YELLOW Urine Clarity HAZY Urine pH 6.5 Ur Specific [place] 1.010 Urine Protein NEGATIVE Urine Glucose (UA) NEGATIVE Urine Ketones NEGATIVE Urine Occult Blood NEGATIVE Urine Nitrite NEGATIVE Urine Bilirubin NEGATIVE Urine Urobilinogen 0.2 (NORMAL) Ur Leukocyte Esterase SMALL H Urine RBC 0-5 Urine WBC 6-10 H Urine WBC Clumps PRESENT Ur Epithelial Cells FEW Transitional Ur Squamous Epith Cells MANY Squamous H Urine Bacteria Few Ur Microscopic Review INDICATED Urine Culture Comments NOT INDICATED - Rads (name of study) lumbar spine Radiology: Prelim report reviewed, EMP read indepedently, See rad report PD MEDICAL DECISION MAKING - ED course Complexity details: reviewed old records, reviewed results, re-evaluated patient , considered differential, d/w patient, d/w family ED course: 82-year-old female with recent fall and compression fracture has had recent urinary tract infection and hospitalization for this with confusion she is recovered from that and was improved yesterday to the extent that she was much more active than she had been for the past 10 days. She went to [facility] to see her family practice doctor and was up and about quite a bit yesterday. This morning after doing her usual routine she went to sit back down her bed was unable to get back up she had severe pain in her back and required transport to the hospital for pain control. She had good control of her pain without movement and reevaluation of her back with lumbar spine x-ray was obtained. Reevaluation of her kidney function and electrolytes was also undertaken and she has an improvement in her transaminitis.I suspect that her pain crisis today is related to excessive activity yesterday because she was improving. Departure - Departure Disposition: 01 Home, Self Care Clinical Impression: Compression fracture of L1 lumbar vertebra Qualifiers: Encounter type: subsequent encounter Fracture type: closed Fracture healing: with routine healing Qualified Code(s): S32.010D - Wedge compression fracture of first lumbar vertebra, subsequent encounter for fracture with routine healing Condition: Stable Instructions: ED Fx Comp Vertebral Follow-Up: KELI ANDERSON MD [Primary Care Provider] -
[2017-04-24 12:34] LABS: BASOPHILS # (AUTO) 0.2 10^3/uL (0.0-0.1); BASOPHILS % (AUTO) 2.7 %; EOSINOPHILS # (AUTO) 0.4 10^3/uL (0.0-0.7); HGB - HEMOGLOBIN 12.6 g/dL (12.0-16.0); LYMPHOCYTES # (AUTO) 1.4 10^3/uL (1.5-3.5); LYMPHOCYTES % (AUTO) 22.3 %; MEAN CORPUSCULAR HEMOGLOBIN 33.1 pg (27.0-31.0); MEAN CORPUSCULAR VOLUME 92.1 fL (81.0-99.0); MEAN PLATELET VOLUME 7.1 fL (7.9-10.8); MONOCYTES # (AUTO) 0.8 10^3/uL (0.0-1.0); MONOCYTES % (AUTO) 13.6 %; NEUTROPHILS # (AUTO) 3.4 10^3/uL (1.5-6.6); NEUTROPHILS % (AUTO) 54.4 %; PLT - PLATELET COUNT 131 10^3/uL (130-450); RED CELL DISTRIBUTION WIDTH 13.5 % (12.0-15.0); WHITE BLOOD COUNT 6.2 x10^3/uL (4.8-10.8)
[2017-04-24 12:49] LABS: ALBUMIN 2.8 g/dL (3.2-5.5); ALBUMIN/GLOBULIN RATIO 0.8 (1.0-2.2); BILIRUBIN,TOTAL 1.1 mg/dL (0.2-1.0); CALCIUM 8.6 mg/dL (8.5-10.3); CREATININE 0.7 mg/dL (0.4-1.0); TOTAL PROTEIN 6.3 g/dL (6.7-8.2)
--- NOTE | 2017-04-24 13:26 | XRAY Report ---
EXAM: LUMBOSACRAL SPINE RADIOGRAPHY EXAM DATE: 04/24/2017 12:57 PM. CLINICAL HISTORY: Sudden increase pain after sitting recent comp fx . COMPARISONS: CT 04/19/2017. TECHNIQUE: 2 views. FINDINGS: Alignment: There is grade 1 spondylolisthesis at L4-L5. There is no scoliosis. Bones: Five [id number] lumbar vertebral bodies are present. There is a compression fracture defo rmity involving the superior endplate of the L1 vertebral body. There is sclerosis of the mid L1 vert ebral body. The degree of central endplate depression of the superior L1 vertebra appears similar to recent CT. There is no new fracture. Disks: There is mild disk height loss at L4-L5. There are anterior disk osteophyte spurs at L1-L2 and L2-L3. Facets: There is lower lumbar spine facet sclerosis. Sacroiliac Joints: Unremarkable. Soft Tissues: There is diffuse atherosclerotic vascular calcification with findings of endovascular s tents. IMPRESSION: 1. Superior endplate compression fracture of L1 appears similar to the recent abdominal CT of 018. 2. Grade 1 spondylolisthesis at L4-L5 appears without significant change. [facility] Referring Provider Line: [phone] SITE ID: [id number]
--- NOTE | 2017-04-24 13:26 | XRAY Preliminary Report ---
Exam: XR LUMBAR SPINE 2 VIEW IMPRESSION: 1. Superior endplate compression fracture of L1 appears similar to the recent abdominal CT of 018. 2. Grade 1 spondylolisthesis at L4-L5 appears without significant change. [facility] SITE ID: [id number]
[2017-04-24 13:58] LABS: BILIRUBIN,URINE NEGATIVE (NEGATIVE); GLUCOSE, URINE (UA) NEGATIVE (NEGATIVE); KETONES,URINE (UA) NEGATIVE (NEGATIVE); LEUKOCYTE ESTERASE, URINE SMALL (NEGATIVE); NITRITE,URINE NEGATIVE (NEGATIVE); OCCULT BLOOD,URINE NEGATIVE (NEGATIVE); PH,URINE 6.5 PH (5.0-7.5); PROTEIN,URINE NEGATIVE (NEGATIVE); UROBILINOGEN,URINE 0.2 (NORMAL) E.U./dL (NORMAL)
[2017-04-24 14:00] LABS: CLARITY,URINE HAZY (CLEAR)
[2017-04-24 14:09] LABS: BACTERIA,URINE Few /HPF (None Seen); EPITHELIAL CELLS,UR FEW Transitional /HPF (<= Few); RBC,URINE 0-5 /HPF (0-5); SQUAMOUS EPITHELIAL CELL,UR MANY Squamous (<= Few); WBC CLUMPS,URINE PRESENT
[2017-04-24] MEDS ORDERED: traMADol 50 MG TABLET PO STA (15:51)
[2017-04-24 16:40] VITALS: BP 127/54
== END 2017-04-24 17:30 | disposition home or self-care (01) ==
LOC: EDUNIT# → ED 11:45
DX: S32.010D Wedge compression fracture of first lumbar vertebra, subsequent encounter for fracture with routine healing (principal); X58.XXXD Exposure to other specified factors, subsequent encounter; I10 Essential (primary) hypertension; E78.00 Pure hypercholesterolemia, unspecified; Z87.891 Personal history of nicotine dependence; Z79.82 Long term (current) use of aspirin
CPT/HCPCS: 36415; 72100; 80053; 81001; 83690; 84484; 85025; 99284; A9270; 81003; 87086

== ENCOUNTER 2017-05-07 08:00 | Outpatient (CLI) | payer MEDICARE, OTHER | END 2017-05-07 08:01 | disposition home or self-care (01) | LOC: LAB.R 08:00 | PROVIDERS: ATTEND Family Medicine | DX: N39.0 Urinary tract infection, site not specified (principal) | CPT/HCPCS: 87086 ==

== ENCOUNTER 2017-05-22 17:35 | Outpatient (CLI) | payer MEDICARE, OTHER | END 2017-05-22 17:36 | disposition critical access hospital (66) | LOC: EMS 17:35 | PROVIDERS: ATTEND Surgery | DX: R53.1 Weakness (principal); M54.9 Dorsalgia, unspecified | CPT/HCPCS: A0425; A0429 ==

== ENCOUNTER 2017-05-22 17:55 | Inpatient (IN) | payer MEDICARE, OTHER ==
[2017-05-22] MEDS ORDERED: SODIUM CHLORIDE 0.9% 1,000 ML IV ONE (18:10)
[2017-05-22] MEDS ORDERED: MORPHINE 2 MG/ML CARPUJECT IVP STA (18:11)
--- NOTE | 2017-05-22 18:13 | ED Physician Documentation ---
PD HPI FOCAL NEURO - Stated complaint Stated Complaint: WEAK - Chief complaint Chief Complaint: Neuro - History obtained from History obtained from: Patient - History of Present Illness Timing - onset: Other (82-year-old woman with recent past medical history of encephalopathy related to UTIs, L1 fracture and a renal mass which she is followed up with urology for and it sounds like they are planning to treat conservatively with monitoring because of her advanced age. She has been having ongoing back pain which is treated with tramadol. Today they were unable to get her up from the couch and were worried for recurrent UTI. There is no recent fever.) Review of Systems Unable to obtain: Confused PD PAST MEDICAL HISTORY - Past Medical History Past Medical History: Yes Cardiovascular: Hypertension, High cholesterol Respiratory: Pneumonia : Incontinence Psych: Claustrophobia Musculoskeletal: Osteoporosis, Chronic back pain Derm: Herpes zoster Other Past Medical History: recent fall L4 compression fx - Past Surgical History Past Surgical History: Yes General: Cholecystectomy, Colonoscopy Ortho: Carpal Tunnel surgery, Spine surgery HEENT: Tonsil/Adenoidectomy - Present Medications Home Medications: Ambulatory Orders Medication Instructions Recorded Confirmed ALPRAZolam [Alprazolam] 1 mg PO BID PRN 04/19/17 04/20/17 Aspirin 325 mg PO DAILYWM 04/19/17 04/21/17 Atenolol 50 mg PO DAILY 04/19/17 04/20/17 Atorvastatin Calcium 40 mg PO QPM 04/19/17 04/21/17 Benzonatate 1 cap PO Q8HR PRN 04/19/17 04/19/17 Gabapentin 300 - 600 mg PO QID 04/19/17 04/20/17 Ibuprofen 200 mg PO QID PRN 04/19/17 04/19/17 Vit A/Vit C/Vit E/Zinc/Copper 1 tab PO BID 04/19/17 04/19/17 [Preservision Areds Softgel] hydroCHLOROthiazide 25 mg PO DAILY 04/19/17 04/21/17 [Hydrochlorothiazide] traMADol [Ultram] 50 mg PO Q6H PRN 04/19/17 04/21/17 - Allergies Allergies/Adverse Reactions: Allergies Allergy/AdvReac Type Severity Reaction Status Date / Time beclomethasone Allergy Mild Unknown Verified 04/19/17 21:20 adhesive tape AdvReac Intermediate Unknown Verified 04/19/17 21:23 codeine AdvReac Intermediate Nausea Verified 04/19/17 21:24 heparin AdvReac Intermediate Unknown Verified 04/19/17 21:18 hydrocodone AdvReac Intermediate Unknown Verified 04/19/17 21:21 oxycodone AdvReac Intermediate Unknown Verified 04/19/17 21:19 promethazine AdvReac Intermediate Unknown Verified 04/19/17 21:20 - Social History Does the pt smoke?: No Smoking Status: Never smoker Does the pt have substance abuse?: No PD ED PE NORMAL - Vitals Vital signs reviewed: Yes - General General: No acute distress, Well developed/nourished, Other (She is alert and oriented to person, she knows she is in the hospital but is only a moderately good historian for recent events. 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 Eye Opening: Spontaneous Motor: Obeys Commands Verbal: Confused GCS Score: 14 - Psych Psych: Normal mood, Normal affect Results - Vitals Vitals: Vital Signs - 24 hr 05/22/17 05/22/17 05/22/17 17:57 18:37 20:39 Temperature 37.1 C Heart Rate 89 62 61 Respiratory 17 18 16 Rate Blood Pressure 143/55 H 114/49 L 124/56 L O2 Saturation 98 97 97 05/22/17 05/22/17 22:25 22:26 Temperature Heart Rate 61 65 Respiratory 16 16 Rate Blood Pressure 109/38 L 117/46 L O2 Saturation 97 96 Oxygen O2 Source [] Room air O2 Source Room air - EKG (time done) 1815 Rate: Rate (enter#) (62) Rhythm: NSR [place]: Normal Intervals: Normal [place] QRS: Normal Ischemia: Normal ST segments Computer interpretation: Agree with computer - Labs Labs: Laboratory Tests 05/22/17 05/22/17 05/22/17 18:25 18:25 18:25 WBC 4.4 L RBC 4.06 L Hgb 12.7 Hct 37.9 MCV 93.4 MCH 31.3 H MCHC 33.5 RDW 14.2 Plt Count 121 L MPV 7.2 L Neut # 2.3 Lymph # 1.3 L [place] # 0.6 Eos # 0.1 Baso # 0.0 Absolute Nucleated RBC 0.00 Nucleated RBC % 0.0 ESR Sodium 139 Potassium 2.8 L Chloride 100 L Carbon Dioxide 27 Anion Gap 12.0 BUN 10 Creatinine 0.8 Estimated GFR (MDRD) 69 L Glucose 170 H Calcium 8.5 Magnesium 1.5 L Total Bilirubin 1.0 AST 45 H ALT 22 Alkaline Phosphatase 141 H Ammonia Troponin I < 0.04 C-Reactive Protein Total Protein 6.3 L Albumin 2.8 L Globulin 3.5 Albumin/Globulin Ratio 0.8 L Lipase < 10 L Urine Color Urine Clarity Urine pH Ur Specific [place] Urine Protein Urine Glucose (UA) Urine Ketones Urine Occult Blood Urine Nitrite Urine Bilirubin Urine Urobilinogen Ur Leukocyte Esterase Ur Microscopic Review Urine Culture Comments Ethyl Alcohol < 5.0 05/22/17 05/22/17 05/22/17 18:25 18:25 19:24 WBC RBC Hgb Hct MCV MCH MCHC RDW Plt Count MPV Neut # Lymph # [place] # Eos # Baso # Absolute Nucleated RBC Nucleated RBC % ESR Sodium Potassium Chloride Carbon Dioxide Anion Gap BUN Creatinine Estimated GFR (MDRD) Glucose Calcium Magnesium Total Bilirubin AST ALT Alkaline Phosphatase Ammonia 20.7 Troponin I C-Reactive Protein 1.5 H Total Protein Albumin Globulin Albumin/Globulin Ratio Lipase Urine Color DARK YELLOW Urine Clarity CLEAR Urine pH 7.0 Ur Specific [place] 1.015 Urine Protein NEGATIVE Urine Glucose (UA) NEGATIVE Urine Ketones NEGATIVE Urine Occult Blood NEGATIVE Urine Nitrite NEGATIVE Urine Bilirubin NEGATIVE Urine Urobilinogen 0.2 (NORMAL) Ur Leukocyte Esterase NEGATIVE Ur Microscopic Review NOT INDICATED Urine Culture Comments NOT INDICATED Ethyl Alcohol 05/22/17 22:04 WBC RBC Hgb Hct MCV MCH MCHC RDW Plt Count MPV Neut # Lymph # [place] # Eos # Baso # Absolute Nucleated RBC Nucleated RBC % ESR 24 Sodium Potassium Chloride Carbon Dioxide Anion Gap BUN Creatinine Estimated GFR (MDRD) Glucose Calcium Magnesium Total Bilirubin AST ALT Alkaline Phosphatase Ammonia Troponin I C-Reactive Protein Total Protein Albumin Globulin Albumin/Globulin Ratio Lipase Urine Color Urine Clarity Urine pH Ur Specific [place] Urine Protein Urine Glucose (UA) Urine Ketones Urine Occult Blood Urine Nitrite Urine Bilirubin Urine Urobilinogen Ur Leukocyte Esterase Ur Microscopic Review Urine Culture Comments Ethyl Alcohol PD MEDICAL DECISION MAKING - ED course ED course: 82-year-old woman has had a tough couple of months and presents today with an acute confusion the family says is definitely new associated with increased back pain and generalized weakness. The lumbar spine was imaged and we looked for UTI another infections which was not evident. She did have worsening of her lumbar spine fracture and the images were sent to [facility] and the case discussed by phone with Dr. Lucia the spine surgeon there who felt that no operative intervention was indicated but did recommend a TLSO. Also recommended CRP and ESR. They had a TLSO at home and did not want us to apply one here because they were worried about getting double billed for it, so this was ordered but later canceled. Given the persistent confusion and bedbound state, a 2 person assist I called the hospitalist, Dr Palacio for obs at 11:15pm. Departure - Departure Disposition: ED Place in Observation Clinical Impression: Hypokalemia Altered mental status Qualifiers: Altered mental status type: disorientation Qualified Code(s): R41.0 - Disorientation, unspecified Compression fracture of L1 lumbar vertebra Qualifiers: Encounter type: initial encounter Fracture type: closed Qualified Code(s): S32.010A - Wedge compression fracture of first lumbar vertebra, initial encounter for closed fracture Condition: Stable
[2017-05-22 18:32] LABS: BASOPHILS % (AUTO) 0.8 %; EOSINOPHILS # (AUTO) 0.1 10^3/uL (0.0-0.7); EOSINOPHILS % (AUTO) 3.2 %; HGB - HEMOGLOBIN 12.7 g/dL (12.0-16.0); LYMPHOCYTES # (AUTO) 1.3 10^3/uL (1.5-3.5); LYMPHOCYTES % (AUTO) 30.5 %; MEAN CORPUSCULAR HEMOGLOBIN 31.3 pg (27.0-31.0); MEAN CORPUSCULAR HGB CONC 33.5 g/dL (32.0-36.0); MEAN CORPUSCULAR VOLUME 93.4 fL (81.0-99.0); MEAN PLATELET VOLUME 7.2 fL (7.9-10.8); MONOCYTES # (AUTO) 0.6 10^3/uL (0.0-1.0); MONOCYTES % (AUTO) 13.4 %; NEUTROPHILS # (AUTO) 2.3 10^3/uL (1.5-6.6); NEUTROPHILS % (AUTO) 52.1 %; PLT - PLATELET COUNT 121 10^3/uL (130-450); RED BLOOD COUNT 4.06 10^6/uL (4.20-5.40); RED CELL DISTRIBUTION WIDTH 14.2 % (12.0-15.0); WHITE BLOOD COUNT 4.4 x10^3/uL (4.8-10.8)
[2017-05-22 18:47] LABS: ALBUMIN 2.8 g/dL (3.2-5.5); ALBUMIN/GLOBULIN RATIO 0.8 (1.0-2.2); ALKALINE PHOSPHATASE 141 IU/L (42-121); ALT ALANINE AMINOTRANSFERASE 22 IU/L (10-60); AST ASPARTATE AMINOTRANSFERASE 45 IU/L (10-42); BUN - BLOOD UREA NITROGEN 10 mg/dL (6-20); CALCIUM 8.5 mg/dL (8.5-10.3); CARBON DIOXIDE - CO2 27 mmol/L (21-32); CHLORIDE 100 mmol/L (101-111); CREATININE 0.8 mg/dL (0.4-1.0); GFR - MDRD 69 (>89); GLUCOSE 170 mg/dL (70-100); MAGNESIUM 1.5 mg/dL (1.7-2.8); SODIUM 139 mmol/L (135-145); TOTAL PROTEIN 6.3 g/dL (6.7-8.2)
[2017-05-22 18:48] LABS: LIPASE < 10 U/L (22-51)
[2017-05-22 19:33] LABS: BILIRUBIN,URINE NEGATIVE (NEGATIVE); GLUCOSE, URINE (UA) NEGATIVE (NEGATIVE); KETONES,URINE (UA) NEGATIVE (NEGATIVE); LEUKOCYTE ESTERASE, URINE NEGATIVE (NEGATIVE); NITRITE,URINE NEGATIVE (NEGATIVE); OCCULT BLOOD,URINE NEGATIVE (NEGATIVE); PROTEIN,URINE NEGATIVE (NEGATIVE); UROBILINOGEN,URINE 0.2 (NORMAL) E.U./dL (NORMAL)
[2017-05-22 19:35] LABS: CLARITY,URINE CLEAR (CLEAR)
--- NOTE | 2017-05-22 19:47 | XRAY Report ---
EXAM: CHEST RADIOGRAPHY EXAM DATE: 05/22/2017 07:06 PM. CLINICAL HISTORY: Weak. COMPARISON: 04/19/2017 chest x-ray. TECHNIQUE: 1 view. FINDINGS: Lungs/Pleura: Hazy opacity at the left lung base is stable most likely representing very prominent fa t-pad. There is otherwise no evidence of acute airspace disease. No pleural effusion or pneumothorax. Mediastinum: Within exam limitations, the cardiomediastinal contour is normal. Other: None. IMPRESSION: No acute cardiopulmonary process. [facility] Referring Provider Line: [phone] SITE ID: [id number]
--- NOTE | 2017-05-22 19:47 | XRAY Preliminary Report ---
Exam: XR CHEST 1 VIEW X-RAY IMPRESSION: No acute cardiopulmonary process. [facility] SITE ID: [id number]
--- NOTE | 2017-05-22 19:57 | CT Report ---
EXAM: CT LUMBAR SPINE WITHOUT CONTRAST EXAM DATE: 05/22/2017 07:08 PM. CLINICAL HISTORY: Worse pain from L1 frx. COMPARISONS: 04/24/2017 lumbar spine radiographs.. TECHNIQUE: Thin-section axial images were acquired of the lumbar spine from T12 to S1 without contras t. Post-processing: Coronal and sagittal reformats. Other: None. In accordance with CT protocol optimization, one or more of the following dose reduction techniques w ere utilized for this exam: automated exposure control, adjustment of mA and/or KV based on patient s ize, or use of iterative reconstructive technique. FINDINGS: Alignment: There is 6 mm of L4 on L5 anterolisthesis. Bones: Five [id number]-czukjma lumbar vertebral bodies are present. There is a comminuted transverse fra cture through the L1 vertebra with approximately 30% loss of vertebral body height. Some sclerosis is seen along the fracture margins. There is 8 mm of bony retropulsion resulting in mild to moderate as ymmetric left central canal stenosis. No other fracture seen. Disk Levels/Facets: Degenerative disk bulging and facet joint arthropathy at L4-L5 resulting in mild bilateral neural foraminal stenosis. There is L5-S1 facet joint arthropathy with no significant juan c inal stenosis. Mild degenerative disk bulging seen at the remaining levels. Musculature: Normal. No fatty atrophy. Other: Aortic and left iliac artery aneurysm stent graft repair. Diverticulosis noted. IMPRESSION: 1. Subacute L1 vertebra fracture with approximately 30% loss of vertebral body heights and bony retro pulsion resulting in mild to moderate central foraminal stenosis. 2. L4-L5 disk and facet joint related degenerative changes resulting in mild bilateral neural foramin al stenosis and grade 1 L4 anterolisthesis. 3. Diverticulosis. [facility] Referring Provider Line: [phone] SITE ID: [id number]
[2017-05-22] MEDS ORDERED: MAGNESIUM SULFATE 2 GRAM 2 GM/50 ML BAG IV ONE (20:06)
[2017-05-22] MEDS ORDERED: POTASSIUM CHLOR 10 MEQ/100 ML 10 MEQ/100 ML BAG IV ONE (20:06)
--- NOTE | 2017-05-22 23:03 | CT Report ---
EXAM: CT HEAD EXAM DATE: 05/22/2017 10:36 PM. CLINICAL HISTORY: Altered. COMPARISON: None. TECHNIQUE: Multiaxial CT images were obtained from the foramen magnum to the vertex. Reformats: Coron al. IV contrast: None. In accordance with CT protocol optimization, one or more of the following dose reduction techniques w ere utilized for this exam: automated exposure control, adjustment of mA and/or KV based on patient s ize, or use of iterative reconstructive technique. FINDINGS: Parenchyma: No intraparenchymal hemorrhage. No evidence of mass, midline shift, or CT findings of inf arction. Harden-white differentiation is distinct. Extraaxial Spaces: Normal for age. No subdural or epidural collections identified. Ventricles: Normal in size and position. Sinuses and Orbits: Imaged paranasal sinuses, orbits, and mastoids show no significant abnormality. Bones: No evidence of fracture or calvarial defect. Other: None. IMPRESSION: No acute intracranial abnormality. [facility] Referring Provider Line: [phone] SITE ID: [id number]
--- NOTE | 2017-05-22 23:03 | CT Preliminary Report ---
Exam: CT HEAD W/O IMPRESSION: No acute intracranial abnormality. [facility] SITE ID: [id number]
[2017-05-22] MEDS ORDERED: oxyCODONE 5 MG TABLET PO PRN (23:42)
[2017-05-22] MEDS ORDERED: TEMAZEPAM 15 MG CAPSULE PO PRN (23:42)
[2017-05-22] MEDS ORDERED: SODIUM CHLORIDE FLUSH 0.9% 10 ML SYRINGE IVP PRN (23:42)
[2017-05-22] MEDS ORDERED: PROCHLORPERAZINE 10 MG/2 ML VIAL IVP PRN (23:42)
[2017-05-23] MEDS ORDERED: ALPRAZolam 0.25 MG TABLET PO PRN ×2 (00:04→10:52)
[2017-05-23] MEDS ORDERED: BENZONATATE 100 MG CAPSULE PO PRN (00:04)
[2017-05-23] MEDS ORDERED: IBUPROFEN 100 MG/5 ML UDC PO PRN (00:04)
--- NOTE | 2017-05-23 00:14 | HISTORY & PHYSICAL EXAMINATION ---
Chief Complaint - Chief Complaint Chief Complaint: altered mental status History of Present Illness - Admitted From Admitted From:: home - History Obtained From History obtained from: Pt's family and Dr Perla - History of Present Illness HPI Comment/Other: Ms. Lary Mg is a very pleasant 82-year-old female with a history of orbital altered mental status which has been waxing and waning over the last few months. She was admitted about a month ago and her son-in-law mentions that they have been here 4 times in the last 4 weeks. Today she was at home and walked to the couch but became very weak and slumped almost to the floor. She could not pick herself up. She also became confused which is something that has also been waxing and waning; her relates that she had been fairly lucid all week up until today. A workup in the emergency department was essentially negative with the exception of some minor electrolyte abnormalities and a CAT scan of the head was also negative for any acute pathology. She had a carotid ultrasound and MRI of her brain a month ago when she was here and these were also negative for any acute pathology. She will be admitted to medical surgical floor, placed on IV fluids and given some antibiotics as this is what cleared up her mentation the last time she was here in the hospital. I have also discussed with the patient's and son-in-law that she should probably have a full neurologic workup at a facility that has neurologist, such as [facility], sometime in the near future. History - Past Medical History Cardiovascular: reports: Hypertension, High cholesterol Respiratory: reports: Pneumonia : reports: Incontinence Psych: reports: Claustrophobia Musculoskeletal: reports: Osteoporosis, Chronic back pain Derm: reports: Herpes zoster MRSA Hx?: No Other Past Medical History: recent fall L4 compression fx - Past Surgical History General: reports: Cholecystectomy, Colonoscopy Ortho: reports: Carpal Tunnel surgery, Spine surgery HEENT: reports: Tonsil/Adenoidectomy - Family & Social History Family History: Mother: , Cancer, Father: , Brother: , CVA/TIA (2 brothers with CVAs), Other family: Diabetes, Type 1, Hyperlipidemia, Hypertension Living arrangement: At home Living Situation: With family - Substance History Use: Uses substance without health or social issues: NONE Abuse: Recurrent use of substance despite neg consequences: NONE Dependence: Experiences withdrawal or developed tolerances: NONE - POLST Patient has POLST: No POLST Status: Full Code Meds/Allgy - Home Medications Home Medications: Ambulatory Orders Medication Instructions Recorded Confirmed ALPRAZolam [Alprazolam] 1 mg PO BID PRN 04/19/17 04/20/17 Aspirin 325 mg PO DAILYWM 04/19/17 04/21/17 Atenolol 50 mg PO DAILY 04/19/17 04/20/17 Atorvastatin Calcium 40 mg PO QPM 04/19/17 04/21/17 Benzonatate 1 cap PO Q8HR PRN 04/19/17 04/19/17 Gabapentin 300 - 600 mg PO QID 04/19/17 04/20/17 Ibuprofen 200 mg PO QID PRN 04/19/17 04/19/17 Vit A/Vit C/Vit E/Zinc/Copper 1 tab PO BID 04/19/17 04/19/17 [Preservision Areds Softgel] hydroCHLOROthiazide 25 mg PO DAILY 04/19/17 04/21/17 [Hydrochlorothiazide] traMADol [Ultram] 50 mg PO Q6H PRN 04/19/17 04/21/17 - Allergies Allergies/Adverse Reactions: Allergies Allergy/AdvReac Type Severity Reaction Status Date / Time beclomethasone Allergy Mild Unknown Verified 04/19/17 21:20 adhesive tape AdvReac Intermediate Unknown Verified 04/19/17 21:23 codeine AdvReac Intermediate Nausea Verified 04/19/17 21:24 heparin AdvReac Intermediate Unknown Verified 04/19/17 21:18 hydrocodone AdvReac Intermediate Unknown Verified 04/19/17 21:21 oxycodone AdvReac Intermediate Unknown Verified 04/19/17 21:19 promethazine AdvReac Intermediate Unknown Verified 04/19/17 21:20 Review of Systems - Constitutional Constitutional: reports: Fatigue, Malaise, Weakness, Weight loss. denies: Fever , Chills - Eyes Eyes: denies: Pain, Irritation, Amaurosis, Blurred vision, Dipolpia - Ears, Nose & Throat Ears, Nose & Throat: denies: Ear pain, Hearing loss, Hearing aids, Tinnitus, Vertigo, Nasal pain, Nasal discharge - Cardiovascular Cariovascular: denies: Irregular heart rate, Palpitations, Chest pain, Edema - Respiratory Respiratory: denies: Cough, Sputum production, Wheezing, Snoring - Gastrointestinal Gastrointestinal: denies: Abdominal pain, Abdominal distention, Constipation, Diarrhea, Change in bowel habits, Rectal bleeding - Genitourinary Genitourinary: denies: Dysuria, Frequency, Urgency, Hematuria - Musculoskeletal Musculoskeletal: reports: Back pain, Stiffness, Limited range of motion, Muscle weakness. denies: Muscle pain, Muscle aches - Integumentary Integumentary: denies: Rash, Pruritis, Lesions, Dryness - Neurological Neurological: denies: General weakness, Focal weakness, Headache, Dizziness - Psychiatric Psychiatric: denies: Depression, Anxiety, Suicidal, Hallucinations - Endocrine Endocrine: denies: Polyuria, Polydypsia, Polyphagia - Hematologic/Lymphatic Hematologic/Lymphatic: denies: Anemia, Bruising, Lymphadenopathy - All Other Systems All Other Systems: reports: Reviewed and negative Exam - Vital Signs Reviewed Vital Signs: Yes Vital Signs: Vital Signs x48h Temp Pulse Resp BP Pulse Ox 05/22/17 22:26 65 16 117/46 L 96 05/22/17 22:25 61 16 109/38 L 97 05/22/17 20:39 61 16 124/56 L 97 05/22/17 18:37 62 18 114/49 L 97 05/22/17 17:57 37.1 C 89 17 143/55 H 98 - Physical Exam General Appearance: positive: No acute distress, Alert Eyes Bilateral: positive: Normal inspection, PERRL, EOMI, No lid inflammation, Conjunctivae nml, No scleral icterus ENT: positive: ENT inspection nml, Pharynx nml, No signs of dehydration Neck: positive: Nml inspection, Thyroid nml, No JVD, Trachea midline. negative : Thyromegaly Respiratory: positive: Chest non-tender, No respiratory distress, Breath sounds nml. negative: Wheezes, Rales, Rhonchi Cardiovascular: positive: Regular rate & rhythm, No murmur, No gallop Peripheral Pulses: positive: 1+ Abdomen: positive: Non-tender, No organomegaly, Nml bowel sounds, No distention. negative: Guarding, Rebound Back: positive: Nml inspection. negative: CVA tenderness (R), CVA tenderness (L ) Skin: positive: Color nml, No rash, Warm, Dry. negative: Cyanosis Extremities: positive: Non-tender, Full ROM, Nml appearance, No pedal edema Neurologic/Psychiatric: positive: CN's nml (2-12), Motor nml, Sensation nml, Mood/affect nml. negative: Facial droop, Slurred/abnml speech, Depressed mood/ affect Conclusion/Plan - Problem List (1) Altered mental status Conclusion/Plan: This seems to be a recurrent theme over the last month or 2. Patient's had multiple hospital admissions for this same problem and typically her mentation clears after she gets some fluids and antibiotics. I did mention to the patient 's family that they might think about going to [facility] for a full neurologic workup after her discharge here. We will continue with IV fluids and antibiotics as deemed appropriate. We will stop the muscle relaxer. Qualifiers: Altered mental status type: disorientation Qualified Code(s): R41.0 - Disorientation, unspecified (2) Compression fracture of L1 lumbar vertebra Conclusion/Plan: The patient is not taking any significant pain medicine which might be causing her altered mental status however she is taking a muscle relaxer which could cause both confusion and weakness. We will stop the muscle relaxer. Qualifiers: Encounter type: initial encounter Fracture type: closed Qualified Code(s) : S32.010A - Wedge compression fracture of first lumbar vertebra, initial encounter for closed fracture (3) Hypokalemia Conclusion/Plan: Correcting. Will monitor. (4) Hypomagnesemia Conclusion/Plan: Correcting with IV piggybacks. - Lab Results Lab results reviewed: Yes Fish Bones: 05/22/17 18:25 05/22/17 18:25 - Diagnostic Imaging Results Diagnostic Imaging Results: positive: Final report reviewed Diagnostic Imaging Results Comments: EXAM: CT LUMBAR SPINE WITHOUT CONTRAST EXAM DATE: 05/22/2017 07:08 PM. CLINICAL HISTORY: Worse pain from L1 frx. COMPARISONS: 04/24/2017 lumbar spine radiographs.. TECHNIQUE: Thin-section axial images were acquired of the lumbar spine from T12 to S1 without contrast. Post-processing: Coronal and sagittal reformats. Other: None. In accordance with CT protocol optimization, one or more of the following dose reduction techniques were utilized for this exam: automated exposure control, adjustment of mA and/or KV based on patient size, or use of iterative reconstructive technique. FINDINGS: Alignment: There is 6 mm of L4 on L5 anterolisthesis. Bones: Five [id number] lumbar vertebral bodies are present. There is a comminuted transverse fracture through the L1 vertebra with approximately 30% loss of vertebral body height. Some sclerosis is seen along the fracture margins. There is 8 mm of bony retropulsion resulting in mild to moderate asymmetric left central canal stenosis. No other fracture seen. Disk Levels/Facets: Degenerative disk bulging and facet joint arthropathy at L4- L5 resulting in mild bilateral neural foraminal stenosis. There is L5-S1 facet joint arthropathy with no significant foraminal stenosis. Mild degenerative disk bulging seen at the remaining levels. Musculature: Normal. No fatty atrophy. Other: Aortic and left iliac artery aneurysm stent graft repair. Diverticulosis noted. IMPRESSION: 1. Subacute L1 vertebra fracture with approximately 30% loss of vertebral body heights and bony retropulsion resulting in mild to moderate central foraminal stenosis. 2. L4-L5 disk and facet joint related degenerative changes resulting in mild bilateral neural foraminal stenosis and grade 1 L4 anterolisthesis. 3. Diverticulosis. EXAM: CHEST RADIOGRAPHY EXAM DATE: 05/22/2017 07:06 PM. CLINICAL HISTORY: Weak. COMPARISON: 04/19/2017 chest x-ray. TECHNIQUE: 1 view. FINDINGS: Lungs/Pleura: Hazy opacity at the left lung base is stable most likely representing very prominent fat-pad. There is otherwise no evidence of acute airspace disease. No pleural effusion or pneumothorax. Mediastinum: Within exam limitations, the cardiomediastinal contour is normal. Other: None. IMPRESSION: No acute cardiopulmonary process. EXAM: CT HEAD EXAM DATE: 05/22/2017 10:36 PM. CLINICAL HISTORY: Altered. COMPARISON: None. TECHNIQUE: Multiaxial CT images were obtained from the foramen magnum to the vertex. Reformats: Coronal. IV contrast: None. In accordance with CT protocol optimization, one or more of the following dose reduction techniques were utilized for this exam: automated exposure control, adjustment of mA and/or KV based on patient size, or use of iterative reconstructive technique. FINDINGS: Parenchyma: No intraparenchymal hemorrhage. No evidence of mass, midline shift, or CT findings of infarction. Harden-white differentiation is distinct. Extraaxial Spaces: Normal for age. No subdural or epidural collections identified. Ventricles: Normal in size and position. Sinuses and Orbits: Imaged paranasal sinuses, orbits, and mastoids show no significant abnormality. Bones: No evidence of fracture or calvarial defect. Other: None. IMPRESSION: No acute intracranial abnormality. Core Measures - Anticipated LOS I expect patient to be DC'd or transferred within 96 hours.: Yes - DVT/VTE - Prophylaxis VTE/DVT Device ordered at admit?: Yes
[2017-05-23] MEDS: SODIUM CHLORIDE FLUSH 0.9% 10 ML SYRINGE IVP SCH ×3 (01:32→17:40)
[2017-05-23] MEDS: D5.45NS W/20 MEQ KCL 1,000 ML IV SCH ×2 (01:33→14:38)
[2017-05-23] MEDS ORDERED: ASPIRIN 325 MG TABLET PO SCH (08:00)
[2017-05-23] MEDS ORDERED: hydroCHLOROthiazide 25 MG TABLET PO SCH (09:00)
[2017-05-23] MEDS ORDERED: POLYETHYLENE GLYCOL 3350 17 GM PACKET PO SCH (09:00)
[2017-05-23] MEDS ORDERED: ATENOLOL 25 MG TABLET PO SCH (09:00)
[2017-05-23] MEDS: GABAPENTIN 300 MG CAPSULE PO SCH ×3 (09:21→17:40)
[2017-05-23] MEDS: traMADol 50 MG TABLET PO PRN ×2 (09:32→17:46)
[2017-05-23] MEDS ORDERED: GADOBUTROL 7.5 MMOL/7.5 ML VIAL ONE (09:51)
[2017-05-23 15:54] VITALS: BP 145/48
--- NOTE | 2017-05-23 17:33 | Discharge Plan ---
Discharge Plan Disposition: 01 Home, Self Care Condition: Fair Diet: Regular Activity Restrictions: Activity as Tolerated Shower Restrictions: No Driving Restrictions: Yes Instruction Topics: Dehydration Rehydration Ch Additional Instructions or Follow Up instructions: Take an Aspirin daily, Atenolol and pain medications. DO NOT TAKE the muscle relaxant Baclofen or the HCTZ, or qny of the other older medications. Avoid sleeping pills and sedatives. See your Primary Care Provider for further adjustments in your medications. Push oral fluid intake (ie. hydrate using all types of fluids without restrictions) See a Neurologist soon for further evaluation No Smoking: If you smoke, Please STOP! Call for help. Follow-up with: Lefty Arteaga MD [Primary Care Provider] -
[2017-05-23] MEDS ORDERED: ATORVASTATIN 40 MG TABLET PO SCH (21:00)
[2017-05-23] MEDS ORDERED: MIRTAZAPINE 15 MG TABLET PO SCH (21:00)
--- NOTE | 2017-06-04 03:24 | DISCHARGE SUMMARY ---
Physician: Vanesa Hanna MD DATE OF ADMISSION: 05/22/2017 DATE OF DISCHARGE: 05/23/2017 This is an 82-year-old, white female with a negative past medical history until recently, when she has had 3 admissions for altered mental status associated with dehydration and infections. These have occurred over the past 3 months. The patient again presented with altered mental status, weakness and too tired to ambulate. The patient was placed in observation for further testing. HOSPITAL COURSE AND DISCHARGE DIAGNOSES 1. Altered mental status. There was no source of infection found. The patient was felt to be mildly dehydrated. With rehydration and sleeping overnight, she woke with her altered mental status resolved once again. The patient did have another CT of the head to evaluate for a new stroke, which was negative. On the last recent admission she already had an Echo and carotid Doppler and brain MRI. I did speak to the [facility] neurologist who is available to our hospital , and reviewed her entire case. He advised that the patient could be discharged and have further outpatient neurological evaluation including a complete consultation, evaluation for seizure disorder and to remain off any narcotics, muscle relaxants and sleeping medications. 2. Compression fracture of the lumbar spine. The patient had mild chronic low back pain and required nearly no pain medications, even before admission. These were imaged with a CT of the LS spine and confirmed. She was found to have subacute L1 vertebral fractures with 30% loss of vertebral body height and mild to moderate central foraminal stenosis. L4-L5 disk and facet joint related degenerative changes resulting in mild bilateral neural foraminal stenosis and grade 1 L4 "anterior disthesis." 3. Hypokalemia. The patient's potassium was replaced. ALLERGIES 1. BECLOMETHASONE. 2. ADHESIVE TAPE. 4. CODEINE. 5. HEPARIN. 6. HYDROCODONE. 7. OXYCODONE. 8. PROMETHAZINE. MEDICATIONS AT THE TIME OF DISCHARGE 1. Adult dose aspirin daily. 2. Atenolol 50 mg p.o. daily. 3. Neurontin 600 mg p.o. q.i.d. The patient was advised to not use baclofen and Ultram if possible. CONDITION AT DISCHARGE: Stable. PHYSICAL EXAMINATION AT DISCHARGE VITAL SIGNS: Blood pressure 145/48 with no orthostatic changes, heart rate of 66 in sinus rhythm, afebrile, and oxygen saturation 100% on room air. Her entire exam was unremarkable, including no neurologic focal deficits. CODE STATUS: FULL CODE. FOLLOWUP: With her PCP and also strongly advised to have a full Neurology consultation for evaluation of repeated presentations with altered mental status. TIME REQUIRED TO COMPLETE THIS DISCHARGE, REVIEW OF THE CASE WITH A [facility] NEUROLOGIST AND DICTATION: 45 minutes. TD: 06/04/2017 03:23 ALONSO
== END 2017-05-23 18:30 | disposition home health service (06) | DRG 641 ==
LOC: ED 17:55 → MS2 23:42
PROVIDERS: ADMIT Hospitalist; ATTEND Internal Medicine
DX: E86.0 Dehydration (principal); R41.0 Disorientation, unspecified; M80.88XA Other osteoporosis with current pathological fracture, vertebra(e), initial encounter for fracture; M80.88XD Other osteoporosis with current pathological fracture, vertebra(e), subsequent encounter for fracture with routine healing; N28.89 Other specified disorders of kidney and ureter; E87.6 Hypokalemia; Z87.440 Personal history of urinary (tract) infections; Z87.01 Personal history of pneumonia (recurrent); Z74.01 Bed confinement status; E83.42 Hypomagnesemia; M47.9 Spondylosis, unspecified; G89.29 Other chronic pain; I10 Essential (primary) hypertension; E78.00 Pure hypercholesterolemia, unspecified; Z79.82 Long term (current) use of aspirin; Z79.899 Other long term (current) drug therapy
CPT/HCPCS: 36415; 70450; 71045; 72131; 80053; 80320; 81001; 81003; 82140; 83690; 83735; 84484; 85025; 85651; 86140; 87086; 93005; 96361; 96365; 96368; 96375; 99284; 99285

== ENCOUNTER 2017-06-12 09:29 | Outpatient (CLI) | payer MEDICARE, OTHER ==
[2017-06-12 09:46] LABS: HGB - HEMOGLOBIN 12.8 g/dL (12.0-16.0); MEAN CORPUSCULAR HEMOGLOBIN 31.7 pg (27.0-31.0); MEAN CORPUSCULAR HGB CONC 33.7 g/dL (32.0-36.0); MEAN CORPUSCULAR VOLUME 94.2 fL (81.0-99.0); RED BLOOD COUNT 4.04 10^6/uL (4.20-5.40); RED CELL DISTRIBUTION WIDTH 14.7 % (12.0-15.0); WHITE BLOOD COUNT 4.3 x10^3/uL (4.8-10.8)
== END 2017-06-12 09:30 | disposition home or self-care (01) ==
LOC: LAB 09:29
PROVIDERS: ATTEND Orthopaedic Surgery
DX: Z01.812 Encounter for preprocedural laboratory examination (principal)
CPT/HCPCS: 36415

== ENCOUNTER 2017-11-30 15:52 | Emergency (ER) | payer MEDICARE, OTHER ==
[2017-11-30 17:01] LABS: BASOPHILS % (AUTO) 0.4 %; HGB - HEMOGLOBIN 11.7 g/dL (12.0-16.0); MEAN CORPUSCULAR HEMOGLOBIN 31.5 pg (27.0-31.0); MEAN CORPUSCULAR HGB CONC 34.4 g/dL (32.0-36.0); MEAN CORPUSCULAR VOLUME 91.8 fL (81.0-99.0); MEAN PLATELET VOLUME 7.6 fL (7.9-10.8); MONOCYTES % (AUTO) 24.4 %; NEUTROPHILS % (AUTO) 49.2 %; PLT - PLATELET COUNT 75 10^3/uL (130-450); RED CELL DISTRIBUTION WIDTH 15.8 % (12.0-15.0); WHITE BLOOD COUNT 2.7 x10^3/uL (4.8-10.8)
[2017-11-30 17:10] LABS: ABNORMAL LYMPHS % (MANUAL) 0 %; BAND NEUTROPHILS % (MANUAL) 0 %
[2017-11-30 17:12] LABS: BILIRUBIN,URINE NEGATIVE (NEGATIVE); GLUCOSE, URINE (UA) NEGATIVE (NEGATIVE); KETONES,URINE (UA) NEGATIVE (NEGATIVE); LEUKOCYTE ESTERASE, URINE NEGATIVE (NEGATIVE); NITRITE,URINE NEGATIVE (NEGATIVE); OCCULT BLOOD,URINE NEGATIVE (NEGATIVE); PROTEIN,URINE NEGATIVE (NEGATIVE); UROBILINOGEN,URINE 2 E.U./dL (NORMAL)
[2017-11-30 17:14] LABS: ALBUMIN 2.6 g/dL (3.2-5.5); ALBUMIN/GLOBULIN RATIO 0.8 (1.0-2.2); BILIRUBIN,TOTAL 0.4 mg/dL (0.2-1.0); CALCIUM 8.6 mg/dL (8.5-10.3); CREATININE 1.2 mg/dL (0.4-1.0); TOTAL PROTEIN 5.9 g/dL (6.7-8.2)
[2017-11-30 17:15] LABS: CLARITY,URINE CLEAR (CLEAR)
[2017-11-30] MEDS ORDERED: ALBUTEROL NEB 2.5 MG/3 ML INH STA (17:35)
[2017-11-30] MEDS ORDERED: SODIUM CHLORIDE 0.9% 1,000 ML IV ONE ×2 (17:39)
--- NOTE | 2017-11-30 17:43 | ED Physician Documentation ---
History of Present Illness - Stated complaint Stated Complaint: UTI - Chief complaint Chief Complaint: UTI - History obtained from History obtained from: Patient, Family - History of Present Illness Timing: How many days ago (3) Pain level max: 0 Pain level now: 0 Improved by: albuterol Worsened by: exertion - Additonal information Additional information: 82 year old female states that she feels like she has a UTI. States unable to give a urine sample 2 days ago with PCP and he placed her on bactrim. States not feeling better yet. No dysuria. No fevers. States just feels tired and weak today. Has a renal mass that is being followed by josias mars. Also feels mildly short of breath. States her 's inhaler helped. Review of Systems Ten Systems: 10 systems reviewed and negative Constitutional: denies: Fever, Chills Ears: denies: Ear pain Nose: denies: Rhinorrhea / runny nose, Congestion Throat: denies: Sore throat Cardiac: denies: Chest pain / pressure, Palpitations Respiratory: reports: Dyspnea. denies: Cough GI: denies: Nausea, Vomiting, Diarrhea Skin: denies: Rash Musculoskeletal: denies: Neck pain, Back pain Neurologic: reports: Generalized weakness. denies: Focal weakness, Numbness, Confused, Altered mental status, Headache PD PAST MEDICAL HISTORY - Past Medical History Past Medical History: Yes Cardiovascular: Hypertension, High cholesterol, Peripheral Vascular Disease Respiratory: Pneumonia Endocrine/Autoimmune: None GI: None : Incontinence, Other HEENT: Chronic vision loss Psych: Claustrophobia Musculoskeletal: Osteoporosis, Chronic back pain Derm: Herpes zoster - Past Surgical History Past Surgical History: Yes General: Cholecystectomy, Colonoscopy Ortho: Carpal Tunnel surgery, Spine surgery HEENT: Tonsil/Adenoidectomy - Present Medications Home Medications: Ambulatory Orders Medication Instructions Recorded Confirmed Atenolol 50 mg PO DAILY 04/19/17 05/23/17 Aspirin [Samantha] 325 mg PO DAILYWM tablet 05/23/17 Albuterol Sulf [Ventolin Hfa 1 - 2 puffs INH Q4HR PRN #1 inhaler 11/30/17 Inhaler] traMADol [Ultram] 50 mg 11/30/17 - Allergies Allergies/Adverse Reactions: Allergies Allergy/AdvReac Type Severity Reaction Status Date / Time beclomethasone Allergy Mild Unknown Verified 01/26/18 21:20 adhesive tape AdvReac Intermediate Unknown Verified 04/19/17 21:23 codeine AdvReac Intermediate Nausea Verified 04/19/17 21:24 heparin AdvReac Intermediate Unknown Verified 04/19/17 21:18 hydrocodone AdvReac Intermediate Unknown Verified 04/19/17 21:21 oxycodone AdvReac Intermediate Unknown Verified 04/19/17 21:19 promethazine AdvReac Intermediate Unknown Verified 04/19/17 21:20 - Social History Does the pt smoke?: No Smoking Status: Never smoker Does the pt have substance abuse?: No - POLST Patient has POLST: No POLST Status: Full Code PD ED PE NORMAL - Vitals Vital signs reviewed: Yes - General General: Alert and oriented X 3, No acute distress - HEENT HEENT: PERRL, Moist mucous membranes, Pharynx benign - Neck Neck: Supple, no meningeal sign - Cardiac Cardiac: RRR, Strong equal pulses - Respiratory Respiratory: No respiratory distress, Other (Mild diminished breath sounds) - Abdomen Abdomen: Soft, Non tender, Non distended - Back Back: No CVA TTP, No spinal TTP - Derm Derm: Warm and dry, No rash - Extremities Extremities: No edema - Neuro Neuro: Alert and oriented X 3 - Psych Psych: Normal mood, Normal affect Results - Vitals Vitals: Vital Signs - 24 hr 11/30/17 11/30/17 11/30/17 16:03 17:43 18:35 Temperature 36.8 C 37 C Heart Rate 61 61 65 Respiratory 18 16 20 Rate Blood Pressure 126/48 L 135/68 H O2 Saturation 99 100 11/30/17 19:42 Temperature 37.1 C Heart Rate 68 Respiratory 20 Rate Blood Pressure 124/72 O2 Saturation 100 Oxygen O2 Source [With Activity] Room air O2 Source Room air - Labs Labs: Laboratory Tests 11/30/17 11/30/17 11/30/17 16:45 16:45 16:45 WBC 2.7 L RBC 3.70 L Hgb 11.7 L Hct 34.0 L MCV 91.8 MCH 31.5 H MCHC 34.4 RDW 15.8 H Plt Count 75 L MPV 7.6 L Neut # (Auto) [place] Lymph # (Auto) [place] # (Auto) [place] Eos # (Auto) [place] Baso # (Auto) [place] Absolute Nucleated RBC [place] Total Counted 100 Band Neuts % (Manual) 0 Abnorm Lymph % (Manual) 0 Nucleated RBC % [place] Neutrophils # (Manual) 1.2 L Lymphocytes # (Manual) 0.7 L Monocytes # (Manual) 0.7 Eosinophils # (Manual) 0.1 Basophils # (Manual) 0.0 Differential Comment MANUAL DIFFERENTIAL Platelet Estimate DECREASED (<130,000) Platelet Morphology NORMAL APPEARANCE RBC Morph Micro Appear 1+ HYPOCHROMASIA Sodium 135 Potassium 3.3 L Chloride 105 Carbon Dioxide 23 Anion Gap 7.0 BUN 20 Creatinine 1.2 H Estimated GFR (MDRD) 43 L Glucose 132 H Lactic Acid Calcium 8.6 Phosphorus 2.6 Magnesium 1.8 Total Bilirubin 0.4 AST 35 ALT 17 Alkaline Phosphatase 102 Total Protein 5.9 L Albumin 2.6 L Globulin 3.3 Albumin/Globulin Ratio 0.8 L Lipase 26 Urine Color Urine Clarity Urine pH Ur Specific [place] Urine Protein Urine Glucose (UA) Urine Ketones Urine Occult Blood Urine Nitrite Urine Bilirubin Urine Urobilinogen Ur Leukocyte Esterase Ur Microscopic Review Urine Culture Comments 11/30/17 11/30/17 17:03 17:47 WBC RBC Hgb Hct MCV MCH MCHC RDW Plt Count MPV Neut # (Auto) Lymph # (Auto) [place] # (Auto) Eos # (Auto) Baso # (Auto) Absolute Nucleated RBC Total Counted Band Neuts % (Manual) Abnorm Lymph % (Manual) Nucleated RBC % Neutrophils # (Manual) Lymphocytes # (Manual) Monocytes # (Manual) Eosinophils # (Manual) Basophils # (Manual) Differential Comment Platelet Estimate Platelet Morphology RBC Morph Micro Appear Sodium Potassium Chloride Carbon Dioxide Anion Gap BUN Creatinine Estimated GFR (MDRD) Glucose Lactic Acid 2.1 Calcium Phosphorus Magnesium Total Bilirubin AST ALT Alkaline Phosphatase Total Protein Albumin Globulin Albumin/Globulin Ratio Lipase Urine Color YELLOW Urine Clarity CLEAR Urine pH 7.0 Ur Specific [place] 1.015 Urine Protein NEGATIVE Urine Glucose (UA) NEGATIVE Urine Ketones NEGATIVE Urine Occult Blood NEGATIVE Urine Nitrite NEGATIVE Urine Bilirubin NEGATIVE Urine Urobilinogen 2 H Ur Leukocyte Esterase NEGATIVE Ur Microscopic Review NOT INDICATED Urine Culture Comments NOT INDICATED - Rads (name of study) cxr Radiology: Prelim report reviewed, EMP read contemporaneously, See rad report ( No acute intrathoracic plain film abnormality) PD MEDICAL DECISION MAKING - ED course Complexity details: reviewed results, re-evaluated patient, considered differential, d/w patient, d/w family ED course: Patient is an 82-year-old female who presents to the emergency department with weakness. Feels much better after IV fluids. Appears to have had dehydration. No acute findings on chest x-ray, urinalysis or other blood work. She appears to have had a slow decrease since March in all of her cell lines and has developed pancytopenia. Will refer her back to her primary care provider for further evaluation of this. Will likely need to see hematology oncology for further care. Patient and family counseled regarding signs and symptoms for which I believe and urgent re-evaluation would be necessary. Patient with good understanding of and agreement to plan and is comfortable going home at this time This document was made in part using voice recognition software. While efforts are made to proofread this document, sound alike and grammatical errors may occur. - Sepsis Event Vital Signs: Vital Signs - 24 hr 11/30/17 11/30/17 11/30/17 16:03 17:43 18:35 Temperature 36.8 C 37 C Heart Rate 61 61 65 Respiratory 18 16 20 Rate Blood Pressure 126/48 L 135/68 H O2 Saturation 99 100 11/30/17 19:42 Temperature 37.1 C Heart Rate 68 Respiratory 20 Rate Blood Pressure 124/72 O2 Saturation 100 Oxygen O2 Source [With Activity] Room air O2 Source Room air Departure - Departure Disposition: 01 Home, Self Care Clinical Impression: Pancytopenia, Dehydration Condition: Good Instructions: ED Dehydration Follow-Up: Eduar Elena MD [Primary Care Provider] - Within 1 week Prescriptions: Albuterol Sulf [Ventolin Hfa Inhaler] 1 - 2 puffs INH Q4HR PRN #1 inhaler PRN Reason: Shortness Of Air/Wheezing Comments: You have pancytopenia on your blood work today and this has been slowly worsening since March the cause of this is unclear, but you would likely benefit from a hematology/oncology referral for further evaluation of this. Drink plenty of fluids at home. Discharge Date/Time: 11/30/17 19:48
[2017-11-30 17:56] LABS: MAGNESIUM 1.8 mg/dL (1.7-2.8); PHOSPHORUS 2.6 mg/dL (2.5-4.6)
[2017-11-30 18:10] LABS: EOSINOPHILS # (MANUAL) 0.1 10^3/uL (0-0.7); LYMPHOCYTES # (MANUAL) 0.7 10^3/uL (1.5-3.5); LYMPHOCYTES % (MANUAL) 27 %; MONOCYTES # (MANUAL) 0.7 10^3/uL (0.0-1.0); NEUTROPHILS # (MANUAL) 1.2 10^3/uL (1.5-6.6); NEUTROPHILS % (MANUAL) 44 %
[2017-11-30 18:12] LABS: DIFFERENTIAL COMMENT MANUAL DIFFERENTIAL; PLATELET ESTIMATE, MANUAL DECREASED (<130,000) (NORMAL); PLATELET MORPHOLOGY NORMAL APPEARANCE (NORMAL)
--- NOTE | 2017-11-30 18:29 | XRAY Report ---
Reason: chills, dyspnea Procedure Date: 11/30/2017 Accession Number: [id number] / [id number] Procedure: XR - Chest 2 View X-Ray CPT Code: 63429 FULL RESULT: EXAM: CHEST RADIOGRAPHY EXAM DATE: 11/30/2017 06:13 PM. CLINICAL HISTORY: Chills, dyspnea. COMPARISON: CHEST 1 VIEW 05/22/2017. TECHNIQUE: 2 views. FINDINGS: Lungs/Pleura: No focal opacities evident. No pleural effusion. No pneumothorax. Normal volumes. Mediastinum: There is mild cardiomegaly. There is thoracic aortic tortuosity. Other: None. IMPRESSION: No acute intrathoracic plain film abnormality. RADIA
[2017-11-30 19:43] VITALS: BP 124/72
== END 2017-11-30 19:48 | disposition home or self-care (01) ==
LOC: ED 15:52
DX: D61.818 Other pancytopenia (principal); E86.0 Dehydration; R06.00 Dyspnea, unspecified; I10 Essential (primary) hypertension; N28.9 Disorder of kidney and ureter, unspecified
CPT/HCPCS: 36415; 71046; 80053; 81001; 81003; 83605; 83690; 83735; 84100; 85025; 87040; 87086; 94640; 94664; 96360; 99283; 99284

== ENCOUNTER 2018-07-23 17:39 | Outpatient (CLI) | payer MEDICARE, OTHER | END 2018-07-23 17:40 | disposition critical access hospital (66) | LOC: EMS 17:39 | PROVIDERS: ATTEND Surgery | DX: M54.2 Cervicalgia (principal); M54.9 Dorsalgia, unspecified; V49.50XA Passenger injured in collision with unspecified motor vehicles in traffic accident, initial encounter; Y92.410 Unspecified street and highway as the place of occurrence of the external cause | CPT/HCPCS: A0425; A0429 ==

== ENCOUNTER 2018-07-23 17:45 | Emergency (ER) | payer MEDICARE, OTHER ==
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
[2018-07-23 20:08] VITALS: BP 146/64
== END 2018-07-23 20:18 | disposition home or self-care (01) ==
LOC: EDUNIT# → ED 17:45
DX: S39.012A Strain of muscle, fascia and tendon of lower back, initial encounter (principal); V43.62XA Car passenger injured in collision with other type car in traffic accident, initial encounter; M50.322 Other cervical disc degeneration at C5-C6 level; I10 Essential (primary) hypertension
CPT/HCPCS: 72100; 72125; 99283; 99284

== ENCOUNTER 2019-08-03 17:13 | Outpatient (CLI) | payer MEDICARE, OTHER | END 2019-08-03 17:14 | disposition home or self-care (01) | LOC: COV 17:13 | PROVIDERS: ATTEND Family Medicine | DX: R05 Cough (principal); R06.02 Shortness of breath; R53.83 Other fatigue; J02.9 Acute pharyngitis, unspecified; R19.7 Diarrhea, unspecified | CPT/HCPCS: 81599 ==

== ENCOUNTER 2020-02-03 07:00 | Outpatient (CLI) | payer MEDICARE, OTHER | END 2020-02-03 23:59 | disposition home or self-care (01) | LOC: COV 07:00 | PROVIDERS: ATTEND Family Medicine | DX: R50.9 Fever, unspecified (principal); M79.10 Myalgia, unspecified site; R53.83 Other fatigue ==